=== PATIENT | male | born 1930 | race Caucasian/White ===

== ENCOUNTER 2019-03-04 06:34 | Inpatient (IN) ==
--- NOTE | 2019-03-04 07:01 | PROVIDER DOCUMENTATION ---
HPI-Cardiac General - General Chief Complaint: Shortness of Breath Stated Complaint: HEART PT---SOB Time Seen by Provider: 03/04/19 06:54 Allergies/Adverse Reactions: Patient Allergies Allergy/AdvReac Type Severity Reaction Status Date / Time Penicillins Allergy Intermediate HIVES Verified 11/26/18 13:04 Sulfa (Sulfonamide Allergy Mild HIVES Verified 11/26/18 13:04 Antibiotics) oxycodone AdvReac Mild ITCHING Verified 11/26/18 13:04 Home Medications: Home Medication List Medication Instructions Recorded Confirmed Last Taken Type Metoprolol [Lopressor] 1.5 tab PO BID 06/14/12 11/26/18 11/25/18 21:00 History Clonazepam 0.5 mg PO HS 11/11/13 11/25/18 11/25/18 21:00 History Multivitamins/Minerals [Centrum 1 tab PO DAILY 11/11/13 11/25/18 11/25/18 09:00 History Silver] Glimepiride 4 mg PO QAM 08/09/14 11/25/18 11/25/18 09:00 History Oxybutynin Chloride [Oxybutynin 10 mg PO DAILY 08/09/14 11/25/18 11/25/18 09:00 History Chloride ER] LISINOpril [Prinivil] 20 mg PO DAILY 07/14/17 03/04/19 11/25/18 09:00 History ATORVAstatin [Lipitor] 10 mg PO DAILY 07/06/18 11/25/18 11/25/18 09:00 History Acetaminophen/Diphenhydramine 0.5 tab PO HS 07/06/18 11/25/18 11/25/18 21:00 History [Tylenol Pm] Insulin Glargine,Hum.rec.anlog 25 - 30 unit SQ PRN PRN 07/06/18 11/26/18 11/26/18 06:00 History [Lantus Solostar] Iron 65 mg PO DAILY 07/06/18 11/25/18 11/25/18 09:00 History Nifedipine E.r. [Adalat cc] 30 mg PO DAILY 07/06/18 11/25/18 11/25/18 09:00 History Sodium Bicarbonate 650 mg PO BID 07/06/18 11/25/18 11/25/18 21:00 History Vitamin B Complex 1 each PO DAILY 07/06/18 11/25/18 11/25/18 09:00 History - History of Present Illness-Cardiac Nature of Presenting Problem: patient woke up 1am complain of sob. no chest pain. symptoms now improved. no fever. no cough. no LE pain or swelling Quality of Pain: reports: none Severity in ED: mild Onset/Duration: last night Timing: improving Context/Activities at Onset: reports: sleep Modifying Factors: improves with: nothing Associated Symptoms: reports: shortness of breath Review of Systems - Adult - REVIEW OF SYSTEMS - ADULT Constitutional: reports: no symptoms reported Cardiovascular: reports: see HPI Respiratory: reports: see HPI Gastrointestinal: reports: no symptoms reported Neurological: reports: no symptoms reported All Other Systems: Reviewed and Negative Past History - Adult - PAST MEDICAL HISTORY-ADULT Review of Records: reports: Nursing Assessment Review, Medications Reviewed, Social history reviewed & non-contributory. Major Childhood Illnesses: reports: denies history Cardiovascular: reports: HTN, hyperlipidemia Respiratory: reports: denies history Gastrointestinal: reports: GERD Obstetrical/Gynecological: reports: denies history Genitourinary: reports: other (renal disorder-bleeding bladder) Musculoskeletal: reports: denies history Neurological: reports: denies history Endocrine/Immune: reports: Diabetes Other Conditions: reports: denies history - PRIOR SURGERIES/PROCEDURES Surgical/Procedure History: reports: other (open heart surgery) - IMMUNIZATION STATUS Childhood Immunizations: See Nurse Assessment Flu Vaccine: See Nurse Assessment - FAMILY HISTORY Family History: reviewed, not pertinent - SOCIAL HISTORY Substance Use: denies Physical Exam-General - PHYSICAL EXAM-ADULT Initial Vital Signs Reviewed: Yes - CONSTITUTIONAL General Appearance: appears well, alert, no apparent distress - EYES Eyes: PERRL/EOMI, pink conjunctivae - HEAD, EARS, NOSE, MOUTH & THROAT HENMT: normocephalic/atraumatic, moist mucous membranes - NECK Neck: non-tender, full range of motion, supple - RESPIRATORY Respiratory: lungs clear, normal breath sounds, no respiratory distress - CARDIOVASCULAR Cardiovascular: normal peripheral pulses, regular rate, rhythm, no edema, no gallop, no JVD, no murmur - GASTROINTESTINAL (ABDOMEN) Abdominal Exam: normal bowel sounds, non tender, soft, no organomegaly, no pulsatile mass - MUSCULOSKELETAL Back Exam: normal inspection Extremity: no pedal edema, no calf tenderness - SKIN Integumentary: normal color, normal turgor, warm/dry - NEUROLOGIC Neurologic: no motor/sensory deficits Progress - PLAN OF CARE/RESULTS Progress/Plan/Lab Results: Vital Signs - 8 hr 03/04/19 06:40 Temperature 98.8 F Pulse Rate 87 Respiratory Rate 15 Blood Pressure 155/89 O2 Sat by Pulse Oximetry 99 Laboratory Results - last 24 hr 03/04/19 03/04/19 03/04/19 07:22 07:22 07:22 WBC 6.65 RBC 3.01 L Hgb 8.8 L Hct 28.6 L MCV 95.0 MCH 29.2 MCHC 30.8 L RDW Std Deviation 14.2 Plt Count 292 MPV 10.7 H Neut % (Auto) 62.7 Lymph % (Auto) 20.2 L [place] % (Auto) 11.4 H Eos % (Auto) 4.5 Baso % (Auto) 1.2 H Neut # (Auto) 4.17 Lymph # (Auto) 1.34 [place] # (Auto) 0.76 H Eos # (Auto) 0.30 Baso # (Auto) 0.08 PT INR PTT (Actin FS) Sodium 140 Potassium 4.4 Chloride 105 Carbon Dioxide 19 L Anion Gap 16 BUN 46 H Creatinine 6.1 H Estimated GFR/1.73 m2 9 BUN/Creatinine Ratio 8 Glucose 158 H Calculated Osmolality 295 Calcium 8.2 L Total Bilirubin 0.25 AST 20 ALT 12 Alkaline Phosphatase 59 Creatine Kinase 110 Troponin T Npi-L-Tpkocmmdjxi Pept > 89357 H Total Protein 7.5 Albumin 3.4 L Globulin 4.1 Albumin/Globulin Ratio 0.8 03/04/19 03/04/19 07:22 07:22 WBC RBC Hgb Hct MCV MCH MCHC RDW Std Deviation Plt Count MPV Neut % (Auto) Lymph % (Auto) [place] % (Auto) Eos % (Auto) Baso % (Auto) Neut # (Auto) Lymph # (Auto) [place] # (Auto) Eos # (Auto) Baso # (Auto) PT 15.8 INR 1.24 PTT (Actin FS) 39.4 Sodium Potassium Chloride Carbon Dioxide Anion Gap BUN Creatinine Estimated GFR/1.73 m2 BUN/Creatinine Ratio Glucose Calculated Osmolality Calcium Total Bilirubin AST ALT Alkaline Phosphatase Creatine Kinase Troponin T 0.747 H* Ett-H-Ykhzyumiyeb Pept Total Protein Albumin Globulin Albumin/Globulin Ratio Orders Category Date Time Status Cardiac Monitoring DIRECTED Care 03/04/19 06:57 Active Oxygen Therapy- ED Nursing DIRECTED Care 03/04/19 06:57 Active Saline Loc NOW Care 03/04/19 06:57 Active CHEST-1 VIEW [RAD] Stat Exams 03/04/19 06:57 Completed CBC WITH ELECTRONIC DIFF [HEME] Stat Lab 03/04/19 07:22 Completed CK PROFILE [SP CHEM] Stat Lab 03/04/19 07:22 Completed COMPREHENSIVE METABOLIC PANEL [CHEM] Stat Lab 03/04/19 07:22 Completed PRO B-NATRIURETIC PEPTIDE Stat Lab 03/04/19 07:22 Completed PROTIME WITH INR [COAG] Stat Lab 03/04/19 07:22 Completed PTT [COAG] Stat Lab 03/04/19 07:22 Completed TROPONIN T Stat Lab 03/04/19 07:22 Completed Aspirin Med 03/04/19 08:11 Discontinued 325 mg PO NOW ONE Furosemide [Lasix] Med 03/04/19 07:31 Discontinued 40 mg IV NOW ONE LISINOpril [Prinivil] Med 03/04/19 07:28 Discontinued 20 mg PO NOW ONE Nitroglycerin Med 03/04/19 08:11 Discontinued 1 inch TOP NOW ONE CP/SOB/Palp >45 yrs of Age Stat Oth 03/04/19 06:57 Ordered EKG [EKG] Stat Ther 03/04/19 06:52 Draft Echo Spec/Color Doppler Stat Ther 03/04/19 08:32 Ordered Result Diagrams: 03/04/19 07:22 03/04/19 07:22 - REASSESSMENT Reassessment #1 Time Reassessed: 08:43 Status: other (NO CHEST PAIN IN ER. SPEAKING IN FULL SENTENCES. DISCUSSED WITH DR BROOKE - WILL ADMIT AND CONSULT CARDIO, NEPHRO, ORDER ECHO) - EKG 1 Time of EKG reading by physician:: 06:50 EKG Read and Signed by:: Darrick Mccoy EKG Interpretation (*Must complete 3 of following elements*): Normal Rate: 69 Rhythm: paced [place]: normal ST Wave: non-specific ST changes Departure - Departure Date of Disposition Decision: 03/04/19 Time of Disposition Decision: 08:42 DIAGNOSIS: JUAN (acute kidney injury), CHF (congestive heart failure), NSTEMI (non-ST elevated myocardial infarction) Disposition: ADMITTED INPATIENT 09 Certified Medical Emergency: Emergent Condition: Fair Referrals and Follow-Ups: Virgil Brooke MD [Primary Care Provider] - - Critical Care Note This patient required my direct & personal management of CC.: Yes Total Time (mins): 45 Critical Care Statement: This patient required my direct personal management to treat or rule out processes, the absence of which, could potentiallly result in sudden, clinically significant life or limb threatening deterioration. Attestation - Physician/ MICHELET Attestation Patient care was provided by Advanced Practice Provider:: No The physician spent face to face time with patient:: Yes Advanced Practice Provider documentation review:: Supervising physician onsite and consulted in the evaluation and care of this patient. The physician did have a face to face encounter with the patient.
--- NOTE | 2019-03-04 07:16 | Diag Imaging Result Doc PS360 ---
EXAM: CHEST-1 VIEW 03/04/2019 HISTORY: SOB TECHNIQUE: AP portable at 0706 COMMENT: Compared to 05/23/2016 there is increased interstitial markings particularly in the right lower lobe. There is pleural thickening in the right apex. There is some questionable opacity in the mid right apex over the first rib anteriorly. IMPRESSION: Pulmonary edema plus minus pneumonia. Electronically signed by Armando Hinojosa 03/04/2019 7:14 AM
[2019-03-04] MEDS ORDERED: PRINIVIL PO ONE (07:28)
[2019-03-04] MEDS ORDERED: LASIX IV ONE ×2 (07:31→14:04)
[2019-03-04 07:40] LABS: BASO# 0.08 X1000 (0.0-0.2); BASO% 1.2 % (0.0-0.8); EOS% 4.5 % (0.0-10.0); HEMATOCRIT 28.6 % (42.0-52.0); HEMOGLOBIN 8.8 g/dL (14.0-18.0); LYMPH# 1.34 X1000 (1.2-3.4); LYMPH% 20.2 % (20.5-51.1); MCH 29.2 PG (27-31); MCHC 30.8 g/dL (33-37); MONO# 0.76 X1000 (0.11-0.59); MONO% 11.4 % (1.7-9.3); MPV 10.7 FL (7.4-10.4); NEUT# 4.17 X1000 (1.4-6.5); NEUT% 62.7 % (42.2-75.2); PLT 292 X1000 (130-400); RBC 3.01 XMIL (4.7-6.1); RDW 14.2 % (11.5-14.5); WBC 6.65 X1000 (4.8-10.8)
--- NOTE | 2019-03-04 07:40 | EKG Report ---
Test Performed on : 03/04/2019 06:46:38 AM Test Reason : SOB Blood Pressure : / mmHG Vent. Rate : 069 BPM Atrial Rate : 069 BPM P-R Int : 000 ms QRS Dur : 142 ms QT Int : 446 ms P-R-T Axes : 019 -67 021 degrees QTc Int : 477 ms Ventricular-paced rhythm Abnormal ECG When compared with ECG of 25-NOV-2018 13:07, Vent. rate has decreased BY 5 BPM Unconfirmed Result
[2019-03-04 07:52] LABS: INR 1.24; PROTIME 15.8 Seconds (11.0-16.0)
[2019-03-04 07:53] LABS: PTT 39.4 Seconds (22.3-41.8)
[2019-03-04 07:58] LABS: ALB/GLOB RATIO 0.8; ALBUMIN 3.4 g/dL (3.5-5.0); CALCIUM 8.2 mg/dL (8.8-10.2); POTASSIUM 4.4 mmol/L (3.5-5.1); TOTAL BILIRUBIN 0.25 mg/dL (0.20-1.00); TOTAL PROTEIN 7.5 g/dL (6.3-8.3)
[2019-03-04 07:59] LABS: CREATININE 6.1 mg/dL (0.7-1.2)
[2019-03-04] MEDS ORDERED: ASPIRIN PO ONE (08:11)
[2019-03-04] MEDS ORDERED: NITROGLYCERIN TOP ONE (08:11)
[2019-03-04] MEDS ORDERED: ZOFRAN IV PRN (08:44)
[2019-03-04] MEDS ORDERED: TYLENOL PO PRN (08:44)
[2019-03-04] MEDS ORDERED: AMBIEN PO PRN (08:44)
[2019-03-04] MEDS ORDERED: LOVENOX SUBQ ONE (10:40)
[2019-03-04] MEDS ORDERED: APRESOLINE IV PRN (11:13)
[2019-03-04] MEDS: CATAPRES PO PRN ×2 (11:35→17:27)
[2019-03-04] MEDS ORDERED: SODIUM CHLORIDE 0.9% INJ SCH (11:45)
--- NOTE | 2019-03-04 13:41 | ECHO REPORT ---
ORDER DATE: 03/04/2019 INTERPRETING PHYSICIAN: Dr. Colton Marrero. ECHOCARDIOGRAPHIC MEASUREMENTS: 1. Interventricular septum: 1.3 cm. 2. Left ventricular posterior wall: 1.2 cm. 3. Diastolic diameter: 4.7 cm. 4. Left atrium: 4.1 cm. 5. Aorta: 3.3 cm. SUMMARY OF THE 2-DIMENSIONAL IMAGIN. There is biatrial enlargement. 2. Tricuspid valve was normal. 3. Mitral valve was normal. There is mitral annular calcification. 4. Aortic valve leaflets were trileaflet. 5. Left ventricular cavity size was normal. There is mild left ventricular hypertrophy with severely reduced systolic function. Estimated ejection fraction of 20%. There is diastolic dysfunction. 6. There is no aortic stenosis. There is mild aortic regurgitation. 7. There is severe mitral regurgitation. 8. There is severe tricuspid regurgitation. Peak velocity across the tricuspid valve was 5.2 m/sec. 9. Pulmonary artery systolic pressure of 118 mmHg. There is severe pulmonary hypertension. 10. Right ventricle was mildly enlarged with reduced right ventricular systolic function. 11. There is no pericardial effusion. 12. Pacing leads were noted in the right chamber. cc: MD Virgil Mariee MD
[2019-03-04] MEDS: PROTONIX IV SCH (13:46)
[2019-03-04] MEDS ORDERED: ADALAT CC PO SCH (14:15)
--- NOTE | 2019-03-04 15:08 | HISTORY AND PHYSICAL ---
CHIEF COMPLAINT: Shortness of breath. 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 The patient was getting weaker. Last night, his shortness of breath was much more severe. He had a hard time breathing. The patient came to the emergency room. He had very elevated blood pressure. Chest x-ray revealed pulmonary edema. Blood work did reveal worsening renal function. The patient was given IV Lasix, evaluated by ER physician, admitted for further care. The patient claims to have diarrhea for 2 days. There was no blood or mucus in the stool. Oral intake was poor. The patient was not taking his medications for the last 2 to 3 days. No typical chest pain. Occasional palpitations. Mild cough. No expectoration. Denied any nausea or vomiting. The patient had suprapubic catheter which was functioning well. No heat or cold intolerance. Unquantified weight loss. Denied any joint swelling. Generalized weakness. No focal weakness. No abdominal distention. No major depression. No further history available at this time. ALLERGIES: Penicillin, sulfa, and oxycodone. PAST MEDICAL HISTORY: Significant for hypertension, chronic kidney disease, hyperlipidemia, hypothyroidism, coronary artery disease, obstructive uropathy, insomnia, chronic kidney disease. PAST SURGICAL HISTORY: CABG with stenting and defibrillator. Multiple urologic intervention for stone and bladder problem. PERSONAL HISTORY: Single. Nonsmoker. Denied alcohol or substance abuse. Fairly independent in activities of daily living. FAMILY HISTORY: Noncontributory. CURRENT MEDICATIONS: Noted. PHYSICAL EXAMINATION: GENERAL: Elderly, white gentleman in mild distress. VITAL SIGNS: In the emergency room, blood pressure 210/105, pulse 66, respirations 23, temperature 98.8 degrees. SKIN: Senile turgor. No rash or petechiae. HEENT: Head atraumatic, normocephalic. Hodgkins conjunctivae. Anicteric sclerae. Extraocular muscle movement normal. Fundus cannot be penetrated. Good oral hygiene. No tonsillopharyngeal congestion or exudate. Ears and nose benign. NECK: Supple. No JVD, thyromegaly, or lymphadenopathy. CHEST: Bibasilar crepitation. Bibasilar rales. Occasional wheezing. CARDIOVASCULAR: S1 and S2 heard. A 2/6 systolic murmur at the apex. No gallop or thrill. ABDOMEN: Soft, nontender. Bowel sounds present. The patient does have suprapubic catheter. EXTREMITIES: No cyanosis, clubbing. No acute DVT. CENTRAL NERVOUS SYSTEM: Alert, awake, able to move all 4 limbs. IMAGING AND LABORATORY DATA: Lab data revealed hemoglobin 8.8, hematocrit 28.6, WBC count 6.65, platelet count 292,000. PT/INR 1.24, PTT 39.4. BUN 46, creatinine 6.1. Troponin 0.717. Chest x- ray: Pulmonary edema. CONSIDERATION: The patient presented with shortness of breath. The patient did have bibasilar rales, deteriorating renal function. 1. Pulmonary edema. 2. Acute on chronic kidney disease stage 4 to 5. 3. Elevated troponin, most likely due to renal failure. 4. Uncontrolled hypertension. 5. Obstructive uropathy. 6. Hypothyroidism. 7. History of cardiac arrhythmia. 8. Anemia, most likely of chronic disease. PLAN: Admit the patient. Nephrology consult with Dr. Cruz. Cardiology consult. Manage hypertension. Fall precaution. Continue home medicine. Overall plan discussed at length with the patient, and he is in agreement. cc: Virgil Brooke MD
[2019-03-04] MEDS ORDERED: BLISTEX MEDICATED BERRY LIP BALM TOP PRN (17:19)
[2019-03-04] MEDS ORDERED: MILRINONE IV ONE (18:35)
[2019-03-04] MEDS ORDERED: LASIX IV SCH (20:00)
[2019-03-04] MEDS ORDERED: APRESOLINE PO SCH (21:00)
[2019-03-04] MEDS ORDERED: COREG PO SCH (21:00)
[2019-03-04] MEDS ORDERED: LOPRESSOR PO SCH (21:00)
[2019-03-04] MEDS: PRIMACOR 20 MG/D5W 100 ML 20 MG/100 ML IVPB IV SCH (21:31)
[2019-03-04] MEDS: KLONOPIN PO SCH (21:39)
[2019-03-04] MEDS: SODIUM BICARBONATE PO SCH (21:39)
--- NOTE | 2019-03-04 21:52 | CONSULTATION ---
DATE OF CONSULTATION: 03/04/2019 IMPRESSION: 1. Acute on chronic systolic heart failure in setting of severe ischemic cardiomyopathy and stage 4 chronic kidney disease. 2. Severe ischemic cardiomyopathy. 3. Severe pulmonary hypertension. 4. Severe mitral regurgitation and severe tricuspid regurgitation by echocardiography. 5. Atherosclerotic coronary disease with previous coronary bypass grafting in 1997 and angioplasty to vein graft to ramus intermedius in 2007. 6. Hypertension. 7. Hyperlipidemia. 8. Type 2 diabetes mellitus. 9. Prostate hypertrophy. 10. Hydroureteronephrosis bilaterally with bilateral ureteral stents as well as suprapubic catheter. RECOMMENDATIONS: 1. Add milrinone in effort to bolster cardiac performance to see if this might aid in diuresing him. 2. Ultimately patient to consider his decision whether or not to pursue dialysis given the progressive deterioration in his renal function. HISTORY: This 88-year-old white male with past history of atherosclerotic coronary disease, previous coronary bypass surgery in 1997, ischemic cardiomyopathy, chronic kidney disease stage 5, diabetes mellitus, hypertension, hyperlipidemia, and long-standing hypertension was admitted with progressive shortness of breath and weakness. He relates having exertional shortness of breath for the last week or so as well as a progressive decline in appetite over the past 3 or 4 weeks. Last night he started having orthopnea, and this prompted him to come in for evaluation. He manifests obvious signs of congestive heart failure. He has been given IV Lasix to initiate diuresis. He has diuresed a modest amount and is feeling better. There has been no chest pain. It is noteworthy that his creatinine raphael to just above 5 several months ago, and he has had nephrology consult with Dr. Sena. He has been putting off a decision regarding possible dialysis. He resides in assisted living. He has not been very active physically. He expresses reluctance to pursue dialysis at his age. PAST MEDICAL HISTORY: 1. Atherosclerotic coronary disease. 2. He is status post coronary bypass graft in 1997. 3. Status post angioplasty of saphenous vein graft to the ramus intermedius in 2007. 4. Ischemic cardiomyopathy. Previous left ventricular ejection fraction of 40%, but current echocardiography shows left ventricular ejection fraction of 20% with severe mitral regurgitation, severe tricuspid regurgitation, and severe pulmonary hypertension by Doppler. 5. Status post implantable defibrillator. 6. Hypertension. 7. Hyperlipidemia. 8. Type 2 diabetes mellitus. 9. Chronic kidney disease stage 5. 10. Hypothyroidism. 11. Prostate hypertrophy. 12. Hydroureteronephrosis bilaterally. Patient is status post bilateral ureteral stents as well as a suprapubic catheter. 13. Nephrolithiasis. 14. Gastroesophageal reflux disease. PAST SURGICAL HISTORY: Also includes cataract procedure and bilateral lens implants. ALLERGIES: He is allergic or intolerant to penicillin, sulfa and oxycodone. MEDICATIONS PRIOR TO ADMISSION: As listed. SOCIAL HISTORY: He is a . He resides in assisted living. He does not smoke or use alcohol. FAMILY HISTORY: Negative for premature coronary disease. REVIEW OF SYSTEMS: Pulmonary: Noteworthy for exertional dyspnea over the last several weeks and orthopnea in the last 24 hours. Gastrointestinal: Noteworthy for diminished appetite as well as some recent diarrhea. Constitutional review of systems: Noteworthy for modest weight loss in setting of poor appetite. Remainder of review of systems negative/noncontributory with 14 total systems reviewed. PHYSICAL EXAMINATION: General: Reveals a thin, elderly white male in no distress. Vital signs: Blood pressure 170/74, heart rate 79, oxygen saturation 97% on nasal cannula oxygen at 2 L/minute. HEENT: Extraocular movements appear intact. Mucous membranes moist. Neck: Supple. Jugular venous distention is demonstrated. Respiratory: Auscultation of the chest reveals a few crackles in the bases bilaterally. Cardiac Exam: Reveals a regular rate and rhythm. There is a grade 2 holosystolic murmur at the left ventricular apex. Gallop could not be appreciated. Abdomen: Soft. Bowel sounds are normal. Extremities: Demonstrate trace edema bilaterally. Neurologic: Exam reveals him to be alert and fully oriented. Speech is fluent. He moves all 4 extremities equally well. Skin: Warm and dry. Psychiatric: Reveals mood to be appropriate. DIAGNOSTIC DATA: Twelve-lead EKG demonstrates sinus rhythm with atrial sensed ventricular paced rhythm. LABORATORY DATA: Includes white blood cell count 6.65, hematocrit 28.6, hemoglobin 8.8, platelet count 292,000, protime 15.8, INR 1.24, PTT 39.4, sodium 140, potassium 4.4, chloride 105, carbon dioxide 19, BUN 46, creatinine 6.1, glucose 158, CPK 82, troponin T 0.706, albumin 3.4. cc: MD Virgil Roberto MD
[2019-03-05] MEDS ORDERED: NS 500 ML IV ONE (03:33)
[2019-03-05] MEDS: SYNTHROID PO SCH (06:08)
[2019-03-05] MEDS ORDERED: LASIX IV SCH (07:18)
--- NOTE | 2019-03-05 07:29 | PROGRESS NOTE ---
DATE: 03/05/2019 SUBJECTIVE: Mr. Ross admitted with shortness of breath, found to be in pulmonary edema, acute renal failure. The patient also had diarrhea at home. His blood pressure was very high. Deterioration of his chronic kidney disease. The patient is doing better. No high-grade fever or chills. Mild cough, no expectoration. No typical chest pain. The patient has suprapubic catheter which is draining well. His input and output chart noted. Urine output was 2175 mL. No diarrhea. OBJECTIVE: Vital Signs: Blood pressure low normal. Neck: Supple. No JVD. Lungs: Bilateral good air entry present. Rales in the lower lung field improved. Cardiovascular: S1 and S2 heard. A 2/6 systolic murmur at the apex. Abdomen: Soft, nontender. Bowel sounds present. Suprapubic catheter is in place. STATUE MAKER: Alert, awake, able to move all 4 limbs. LABS: The patient a.m. blood work is pending. ASSESSMENT AND PLAN: The patient medical problems include: 1. Acute on chronic congestive heart failure with pulmonary edema. 2. Chronic kidney disease. 3. Diabetes mellitus. 4. Hypothyroidism. 5. Cardiac arrhythmia. Appreciate Cardiology's help managing patient. The patient does have significant pulmonary hypertension, severe ischemic cardiomyopathy, obstructive uropathy, and suprapubic catheter. Patient's son was present. Overall plan and prognosis discussed. The patient is declining dialysis. We will continue current treatment. Close observation. As per patient's son, who is next of kin, requested DNR level 2. cc: Virgil Brooke MD
[2019-03-05 08:08] LABS: BASO# 0.07 X1000 (0.0-0.2); BASO% 1.2 % (0.0-0.8); EOS# 0.07 X1000 (0.0-0.7); EOS% 1.2 % (0.0-10.0); HEMATOCRIT 27.1 % (42.0-52.0); HEMOGLOBIN 8.3 g/dL (14.0-18.0); LYMPH# 0.88 X1000 (1.2-3.4); LYMPH% 14.9 % (20.5-51.1); MCH 28.3 PG (27-31); MCHC 30.6 g/dL (33-37); MCV 92.5 FL (81-99); MONO# 0.51 X1000 (0.11-0.59); MONO% 8.7 % (1.7-9.3); MPV 10.7 FL (7.4-10.4); NEUT# 4.36 X1000 (1.4-6.5); PLT 283 X1000 (130-400); RBC 2.93 XMIL (4.7-6.1); RDW 13.9 % (11.5-14.5); WBC 5.89 X1000 (4.8-10.8)
[2019-03-05 08:17] LABS: POTASSIUM 3.8 mmol/L (3.5-5.1)
[2019-03-05 08:18] LABS: ALB/GLOB RATIO 0.7; ALBUMIN 2.8 g/dL (3.5-5.0); CALCIUM 7.9 mg/dL (8.8-10.2); CREATININE 7.2 mg/dL (0.7-1.2); TOTAL BILIRUBIN 0.18 mg/dL (0.20-1.00); TOTAL PROTEIN 6.8 g/dL (6.3-8.3)
[2019-03-05 08:22] LABS: FREE T4 0.92 ng/dL (0.93-1.70); TSH 1.73 uIUmL (0.27-4.20)
[2019-03-05] MEDS: COLACE PO SCH (08:32)
[2019-03-05] MEDS: APRESOLINE PO SCH ×3 (08:32→20:40)
[2019-03-05] MEDS: ISORDIL PO SCH ×3 (08:32→18:02)
[2019-03-05] MEDS: ADALAT CC PO SCH (08:32)
[2019-03-05] MEDS: SODIUM BICARBONATE PO SCH ×2 (08:32→20:40)
[2019-03-05] MEDS: COREG PO SCH ×2 (08:32→20:40)
[2019-03-05] MEDS: FERROUS SULFATE PO SCH (08:33)
[2019-03-05] MEDS: PRIMACOR 20 MG/D5W 100 ML 20 MG/100 ML IVPB IV SCH ×2 (11:46→23:59)
[2019-03-05] MEDS: PROTONIX IV SCH (11:47)
--- NOTE | 2019-03-05 14:08 | NEPHROLOGY CONSULTATION ---
DATE: 03/05/2019 REASON FOR CONSULTATION: Chronic kidney disease stage 5. HISTORY OF PRESENT ILLNESS: Mr. Ross is an 88-year-old, white male with obstructive uropathy. He has stent exchange on a regular basis, most recently in November. He follows with Dr. Sena and they have been discussing renal replacement therapy. He has been ambivalent about pursuing this. He came to the hospital because of worsening weakness and difficulty with shortness of breath, especially with exertion. No chest pain. No cough or sputum. No abdominal pain. He does relate diarrhea. No chills or fevers. PAST MEDICAL HISTORY: As above. He also has hypertension, hyperlipidemia, hypothyroidism, coronary disease, insomnia. HOME MEDICATIONS: Include: Metoprolol, multivitamin, oxybutynin, glimepiride, lisinopril, Tylenol PM, sodium bicarbonate, nifedipine, atorvastatin, insulin, digoxin, Colace, levothyroxine, nifedipine. ALLERGIES: Penicillin, sulfa, oxycodone. SOCIAL HISTORY: He lives in [facility]. His son lives in assisted living facility in the [facility]. FAMILY HISTORY: Otherwise noncontributory. His mother lived to be 102. REVIEW OF SYSTEMS: Otherwise noncontributory. PHYSICAL EXAM: Blood pressure 136/56, heart rate 78, respirations 6 afebrile.Generally: Elderly man lying in bed at 20 degrees. No acute distress. Skin: Warm and dry, thin with multiple bruises. HEENT: Conjunctivae are pink. Pupils are equal. Corneal arcus is present. Oropharynx is clear. Poor dentition. Neck: Supple. Trachea is midline. Neck vein distention is present. Heart: PMI nondisplaced. Regular rate and rhythm with a gallop but no rubs. Lungs: Have equal excursion, equal breath sounds. No crackles or wheezes. Abdomen: Soft, nontender. Bowel sounds present. Extremities: Have no edema, clubbing or cyanosis. IMPRESSION: 1. Chronic kidney disease stage 5. We had another conversation about the role of renal replacement therapy in management of his uremic symptoms. We discussed a possible closed ended trial of hemodialysis to assess its effectiveness in helping him compensate for his symptoms. He has not had any absolute indications for dialysis today. He does have some evidence of volume overload but he has been treated with diuretics with a nice response. 2. Will follow along. cc: MD Virgil Hyde MD
--- NOTE | 2019-03-05 15:00 | PROGRESS NOTE ---
DATE: 03/05/2019 SUBJECTIVE: Patient denies shortness of breath or chest discomfort on supplemental oxygen per nasal cannula. OBJECTIVE: Vitals: Blood pressure 138/62. Heart rate 78, oxygen saturation 93 to 97% on supplemental oxygen per nasal cannula. Estimated jugular venous pressure approximately 10 to 12. Chest: Fairly clear to auscultation. Cardiac: Reveals a regular rate and rhythm with grade 2/6 systolic murmur at the left ventricular apex. Extremities: There is no evidence of peripheral edema. LABORATORY DATA: Includes white blood cell count of 5.9, hematocrit 27.1, hemoglobin 8.3. Sodium 137, potassium 3.8, chloride 104, carbon dioxide 18, BUN 51, creatinine 7.2. Initial troponin 0.706, followup troponin 0.708. Initial CPK 2, followup CPK 55. IMPRESSION: 1. Acute on chronic systolic heart failure in the setting of severe ischemic cardiomyopathy and stage 5 chronic kidney disease. 2. Nonspecific very mild elevation in troponin, probably related to renal failure and congestive heart failure. Doubt acute coronary syndrome. 3. Severe ischemic cardiomyopathy. 4. Severe pulmonary hypertension. 5. Severe mitral regurgitation and severe tricuspid regurgitation. 6. Atherosclerotic coronary disease with previous coronary bypass grafting in 1997 and angioplasty to saphenous vein graft to ramus intermedius in 2007. Patient continues without angina. 7. Hypertension. 8. Hyperlipidemia. 9. Type 2 diabetes mellitus. 10. Prostate hypertrophy. RECOMMENDATIONS: 1. Continue Coreg at current dose along with hydralazine/isosorbide. 2. Reduce IV Lasix to once daily. 3. Continue low-dose milrinone for now. cc: MD Virgil Roberto MD
[2019-03-05] MEDS: LASIX IV SCH (15:57)
[2019-03-05] MEDS: KLONOPIN PO SCH (20:39)
[2019-03-06] MEDS: SYNTHROID PO SCH (06:01)
[2019-03-06 07:50] LABS: ALB/GLOB RATIO 0.7; ALBUMIN 2.9 g/dL (3.5-5.0); CALCIUM 7.4 mg/dL (8.8-10.2); CREATININE 7.7 mg/dL (0.7-1.2); POTASSIUM 3.8 mmol/L (3.5-5.1); TOTAL BILIRUBIN 0.2 mg/dL (0.20-1.00); TOTAL PROTEIN 6.9 g/dL (6.3-8.3)
[2019-03-06 07:54] LABS: HEMOGLOBIN 7.5 g/dL (14.0-18.0); MCHC 31.3 g/dL (33-37); MCV 92.7 FL (81-99); MPV 10.9 FL (7.4-10.4); RBC 2.59 XMIL (4.7-6.1); RDW 13.9 % (11.5-14.5); WBC 8.1 X1000 (4.8-10.8)
[2019-03-06] MEDS: APRESOLINE PO SCH ×3 (10:36→23:33)
[2019-03-06] MEDS: ADALAT CC PO SCH (10:36)
[2019-03-06] MEDS: FERROUS SULFATE PO SCH (10:36)
[2019-03-06] MEDS: COLACE PO SCH (10:36)
[2019-03-06] MEDS: COREG PO SCH ×2 (10:36→20:59)
[2019-03-06] MEDS: ISORDIL PO SCH ×3 (10:37→20:59)
[2019-03-06] MEDS: LASIX IV SCH (10:37)
[2019-03-06] MEDS: SODIUM BICARBONATE PO SCH ×2 (10:37→20:59)
[2019-03-06] MEDS: PROTONIX IV SCH ×2 (10:40→10:55)
--- NOTE | 2019-03-06 12:09 | PROGRESS NOTE ---
DATE: 03/06/2019 SUBJECTIVE: An 88-year-old white male, admitted in the PVC unit since 03/04/2019. He came in with shortness of breath. Multiple medical problems. A Matthews was placed, drained [address] Cruz was consulted. He denies any shortness of breath, chest pain. PAST MEDICAL HISTORY: Reviewed. PAST SURGICAL HISTORY: Reviewed. MEDICINES: Reviewed. ALLERGIES: Penicillin, sulfa drugs. PHYSICAL EXAMINATION: Vital Signs: Temperature is 98 degrees, pulse 94, blood pressure 150/72. General: Mild respiratory distress and elevated JVD. Cardiovascular: Tachycardic with a gallop. Abdomen: Belly is soft. Genitourinary: SPC catheter was present. Extremities: No peripheral edema. LABORATORY DATA: White cell count 8.1, hematocrit 24, platelets 276,000. Sodium 138, potassium 3.8, chloride 103, BUN 55, creatinine 7.7, and LFTs were normal. Chest x-ray on 03/04/2019, cardiomegaly. He has a pacemaker noted on the left side. EKG, pacemaker rhythm. ASSESSMENT: 1. Acute on chronic systolic heart failure with severe ischemic cardiomyopathy. 2. End-stage kidney disease. 3. Nonspecific elevation of troponin. 4. Severe pulmonary hypertension. 5. Severe mitral regurgitation. 6. Coronary artery disease with bypass graft. 7. Hypertension. 8. Hyperlipidemia. 9. Type 2 diabetes. 10. Prostatic hypertrophy. 11. History of kidney stones. PLAN OF CARE: The patient is on IV Lasix and Milrinone. No significant improvement of urine output. Dr. Cruz was notified, and he is a DNR level 2 and control the blood pressure and afterload as given with hydralazine, isosorbide, nifedipine. Prognosis is poor. DNR level 2 and we will follow up. We will monitor blood workup on a daily basis. We will repeat the labs. LEVEL OF DOCUMENTATION: 35 minutes. cc: MD Virgil Lai MD
--- NOTE | 2019-03-06 15:02 | CARDIOLOGY PROGRESS NOTE ---
DATE: 03/06/2019 SUBJECTIVE: Mr. Ross has no complaints today. He is tolerating oral intake. He has no shortness of breath. PHYSICAL EXAMINATION: Vital Signs: Afebrile. Heart rate 94. His blood pressure is 150/72, but on review of his last several blood pressures he has had systolics as low as 97. General: He is in no acute distress. Cardiovascular: He sounds to be in a regular rate and rhythm. He has no murmurs. He has no S3. He has no lower extremity edema. Chest exam: Sounds relatively clear. He has no increased work of breathing. Abdomen: His abdomen is soft, nontender. PERTINENT DATA: His white count is 8.1, hematocrit 24, platelet count 276. His sodium is 138, potassium 3.8, BUN 55, creatinine 7.7. ASSESSMENT: Mr. Ross is an 88-year-old gentleman with a history of chronic kidney disease, now appearing to be in end-stage renal disease with tentative plans for placement of a dialysis access. PLAN: At this point, I would continue him on the Milrinone. His renal function is worsening. His diuresis does not seem to be particularly effective based on his inputs/outputs. I do not see any significant adjustments I can make in his medications at this point to better treat his heart failure. cc: MD Virgil Cruz MD
[2019-03-06] MEDS: PRIMACOR 20 MG/D5W 100 ML 20 MG/100 ML IVPB IV SCH (15:52)
[2019-03-06] MEDS: KLONOPIN PO SCH (20:59)
[2019-03-07] MEDS: SYNTHROID PO SCH ×2 (05:50→06:03)
[2019-03-07] MEDS: PRIMACOR 20 MG/D5W 100 ML 20 MG/100 ML IVPB IV SCH (05:50)
[2019-03-07 07:34] LABS: BASO# 0.04 X1000 (0.0-0.2); BASO% 0.6 % (0.0-0.8); EOS# 0.16 X1000 (0.0-0.7); EOS% 2.4 % (0.0-10.0); HEMATOCRIT 23.7 % (42.0-52.0); HEMOGLOBIN 7.3 g/dL (14.0-18.0); IMM GRAN# 0.02 X1000 (0.0-0.04); IMM GRAN% 0.3 % (0.0-0.5); LYMPH# 1.29 X1000 (1.2-3.4); LYMPH% 19.2 % (20.5-51.1); MCH 28.3 PG (27-31); MCHC 30.8 g/dL (33-37); MCV 91.9 FL (81-99); MONO# 1.04 X1000 (0.11-0.59); MONO% 15.5 % (1.7-9.3); MPV 10.6 FL (7.4-10.4); NEUT# 4.16 X1000 (1.4-6.5); PLT 285 X1000 (130-400); RBC 2.58 XMIL (4.7-6.1); RDW 13.8 % (11.5-14.5); WBC 6.71 X1000 (4.8-10.8)
[2019-03-07 07:57] LABS: AGAP 16; ALB/GLOB RATIO 0.7; ALBUMIN 2.7 g/dL (3.5-5.0); ALKALINE PHOSPHATASE 50 U/L (32-122); BUN 60 mg/dL (8-22); CALCIUM 7.8 mg/dL (8.8-10.2); CHLORIDE 105 mmol/L (98-107); COSMO 300; CREATININE 7.3 mg/dL (0.7-1.2); ESTIMATED GFR 7; GLUCOSE 173 mg/dL (70-104); GOT 16 U/L (10-34); GPT 8 U/L (10-44); SODIUM 140 mmol/L (136-145); TCO2 19 mmol/L (25-35); TOTAL BILIRUBIN < 0.15 mg/dL (0.20-1.00); TOTAL PROTEIN 6.5 g/dL (6.3-8.3)
[2019-03-07] MEDS: SODIUM BICARBONATE PO SCH ×2 (09:22→20:27)
[2019-03-07] MEDS: ADALAT CC PO SCH (09:23)
[2019-03-07] MEDS: ISORDIL PO SCH ×3 (09:23→21:43)
[2019-03-07] MEDS: COLACE PO SCH (09:23)
[2019-03-07] MEDS: COREG PO SCH ×2 (09:23→20:27)
[2019-03-07] MEDS: FERROUS SULFATE PO SCH (09:23)
[2019-03-07] MEDS: LASIX IV SCH (09:24)
[2019-03-07] MEDS: APRESOLINE PO SCH ×3 (09:24→20:27)
--- NOTE | 2019-03-07 10:48 | GENERAL SURGERY CONSULTATION ---
DATE: 03/07/2019 REQUESTING PHYSICIAN: Dr. Carranza. REASON FOR CONSULTATION: Placement of hemodialysis catheter. HISTORY OF PRESENT ILLNESS: An 88-year-old male with multiple medical comorbidities who presented initially with shortness of breath and felt dizzy related to congestive heart failure. They have tried to give him diuretics, and he has not seemed to improve. He does have chronic kidney disease and likely has acute on chronic. He had a recent echocardiogram that shows an EF of 20% and pulmonary hypertension. I was asked to place a dialysis catheter to try to help with the process of diuresis. PAST MEDICAL HISTORY: Hypertension, chronic kidney disease, hyperlipidemia, hypothyroidism, coronary artery disease, obstructive uropathy, insomnia. PAST SURGICAL HISTORY: Coronary artery bypass, defibrillator, multiple urologic surgeries. SOCIAL HISTORY: Nonsmoker. FAMILY HISTORY: Reviewed with patient, noncontributory. ALLERGIES: Penicillin, sulfa and oxycodone. CURRENT MEDICATIONS: Reviewed. REVIEW OF SYSTEMS: A full 14 systems reviewed and negative except as specified in HPI. PHYSICAL EXAMINATION: Vital Signs: The patient is currently afebrile. His vital signs are stable. General: No acute distress, male, looks stated age. HEENT: Normocephalic, atraumatic. Pupils equal, round, reactive to light. Mucous membranes moist. Oropharynx benign. Neck: Supple, trachea midline. Cardiovascular: Regular rate and rhythm. Lungs: Grossly clear. Abdomen: Soft, nontender, nondistended. Extremities: Moves all extremities. Neurologic: Grossly intact. Skin: No signs of jaundice. Vascular: All extremities perfused. LABORATORY DATA: From today, white blood cell count is normal, hematocrit is 23, platelet count 285,000. Creatinine 7.3, BUN is 65, potassium is normal. ASSESSMENT AND PLAN: An 88-year-old with acute on chronic kidney disease and congestive heart failure. 1. Acute on chronic kidney disease. At this time, he needs a more durable access for dialysis. We will plan on placement of a tunneled hemodialysis catheter tomorrow. The risks, benefits, and alternatives were discussed. Risks including, but not limited to bleeding, infection, risk of anesthesia, risk of pneumothorax discussed. We will likely need to do this under monitored anesthesia care and not general anesthetic given his medical comorbidities. 2. Multiple medical comorbidities currently being managed by his primary care physician. cc: MD Virgil Weiner MD
--- NOTE | 2019-03-07 13:05 | PROGRESS NOTE ---
DATE: 03/07/2019 SUBJECTIVE: The family was at bedside. He denies any chest pain or shortness of breath. His urine output was less than 200 mL. OBJECTIVE: General: He is a frail moises, not in respiratory distress. Neck: JVD is elevated. Heart: Heart sounds are regular and with a gallop. Abdomen: Belly is soft with SPC catheter noted. Extremities: No peripheral edema. INVESTIGATIONS: White cell count 6.1, hematocrit 23.7, platelets 285,000. Sodium 140, potassium 4.0, chloride 105, BUN 60, creatinine 7.3. LFTs were normal. ASSESSMENT AND PLAN: 1. End-stage kidney disease. No improvement with intravenous Lasix and Milrinone. I spoke to Dr. Cruz as well as Dr. Matias, who is on-call. Family agreed for dialysis, and Dr. Matias has been consulted for a tunnel catheter in preparing for dialysis. In the meantime, continue present treatment. 2. Living will. DO NOT RESUSCITATE 2. Prognosis is poor down the line. Continue present treatment. LEVEL OF DOCUMENTATION: 25 minutes. cc: MD Virgil Lai MD
--- NOTE | 2019-03-07 13:46 | CARDIOLOGY PROGRESS NOTE ---
DATE: 03/07/2019 SUBJECTIVE: Mr. Ross reports he is doing well. He has no orthopnea. He is lying flat. PHYSICAL EXAMINATION: The patient is afebrile. Heart rate 89, blood pressure 126/51. His I's and O's are slightly positive over the last 24 hours.General: He is in no acute distress. Cardiovascular: He sounds to be in a regular rate and rhythm. He has no murmurs. He has no lower extremity edema. He has warm and well perfused extremities. Chest: Clear bilaterally. He has no increased work of breathing. Abdomen: Soft, nontender. PERTINENT DATA: His albumin is 2.7, his BUN and creatinine are 60 and 7.3 which is roughly stable over the last couple of days. His white count is 6.7, hematocrit 23. ASSESSMENT: Mr. Ross is an 88-year-old gentleman who presents with heart failure and worsening end-stage renal disease. PLAN: I will stop his nifedipine and titrate up his hydralazine. We will discontinue his Milrinone over the course of the day. He is tentatively planned for his tunnel catheter in the morning. cc: MD Virgil Cruz MD
[2019-03-07] MEDS: PROTONIX IV SCH (15:16)
--- NOTE | 2019-03-07 18:35 | NEPHROLOGY PROGRESS NOTE ---
DATE: 03/07/2019 SUBJECTIVE: He has decided that he will pursue dialysis. He is awaiting tunnel catheter placement in the morning. No shortness of breath. OBJECTIVE: Vital Signs: Blood pressure 142/63, heart rate 85, respiration 18, afebrile. General: No acute distress. Skin: Warm and dry, thin, with bruising. HEENT: Conjunctivae are pink. Heart: PMI is displaced. Regular rhythm with a gallop. Lungs: Equal. No crackles. Abdomen: Soft, nontender. Bowel sounds present. Extremities: No edema, clubbing or cyanosis. IMPRESSION: Chronic kidney disease stage 5. He will initiate dialysis tomorrow. Two-hour treatment using a 3 potassium bath and minimal ultrafiltration. Daily treatment thereafter for total of 3 days. He plans to move to the [place] area, so we will defer to the [facility] to arrange outpatient dialysis. cc: MD Virgil Hyde MD
[2019-03-07] MEDS: KLONOPIN PO SCH (20:27)
[2019-03-08] MEDS: SYNTHROID PO SCH ×2 (05:22→06:02)
[2019-03-08] MEDS ORDERED: XYLOCAINE-MPF 2% ONE (07:19)
[2019-03-08] MEDS ORDERED: DIPRIVAN 1% ONE (07:19)
--- NOTE | 2019-03-08 07:19 | GENERAL SURGERY PROGRESS NOTE ---
DATE: 03/08/2019 SUBJECTIVE: The patient seems to be doing okay. OBJECTIVE: Vital Signs: The patient is currently afebrile. His vital signs are stable. General: No acute distress. HEENT: Normocephalic, atraumatic. Pupils equal, round, reactive to light. Mucous membranes moist. Oropharynx benign. Neck: Supple. Trachea midline. Cardiovascular: Regular rate and rhythm. Lungs: Grossly clear. Abdomen: Soft, nontender, nondistended. Extremities: Moves all extremities. Neurologic: Grossly intact. Skin: No signs of jaundice. Vascular: All extremities perfused. LABORATORY DATA: None. IMAGING: Chest x-ray from when he came in was reviewed. He does have a pacemaker from his left subclavian, it looks like, but should be out of the way of a right internal jugular vein tunneled catheter. ASSESSMENT AND PLAN: An 88-year-old gentleman needing hemodialysis catheter. Hemodialysis catheter. At this time, will plan on placement today. I discussed with him and documented yesterday, the risks, benefits, and alternatives. Will place again today. cc: MD Virgil Weiner MD
[2019-03-08] MEDS ORDERED: NS 250 ML ONE (07:56)
[2019-03-08] MEDS ORDERED: XYLOCAINE 1%/EPI 1:100,000 ONE (07:56)
[2019-03-08] MEDS ORDERED: KEFZOL 1 GM/D5W 1 GM/50 ML IVPB IV ONE (08:00)
[2019-03-08] MEDS ORDERED: TIGHT: 0.2 ML/HR FOR DIALYSIS MISC PRN (08:09)
[2019-03-08] MEDS ORDERED: NS 2,000 ML MISC PRN (08:09)
[2019-03-08] MEDS ORDERED: HEPARIN IV PRN (08:09)
[2019-03-08] MEDS ORDERED: ULTRAM PO ONE (08:48)
--- NOTE | 2019-03-08 09:11 | OPERATIVE NOTE ---
PROCEDURE DATE: 03/08/2019 PREOPERATIVE DIAGNOSES: 1. Acute on chronic kidney disease. 2. Need for hemodialysis. POSTOPERATIVE DIAGNOSES: 1. Acute on chronic kidney disease. 2. Need for hemodialysis. PROCEDURE PERFORMED: Ultrasound of fluoroscopic-guided right internal jugular vein tunneled hemodialysis catheter placement. SURGEON: Louis Matias M.D. ELECTRICAL REPAIRER: None. ANESTHESIA: IV MAC. FINDINGS: Ultrasound showed good-caliber right internal jugular vein. Fluoroscopy showed the catheter in good position. COMPLICATIONS: None at the time of this dictation. ESTIMATED BLOOD LOSS: 3 mL. SPECIMENS REMOVED: None. BRIEF HISTORY: An 88-year-old gentleman with congestive heart failure and acute on chronic kidney disease, who needed to have dialysis for some fluid management. The risks, benefits, and alternatives for placement were discussed and documented in the chart. All questions answered. DESCRIPTION OF PROCEDURE: After informed consent was obtained, the patient was brought to the operative theatre, transferred to the operating table, and placed in the supine position. IV MAC anesthesia was then performed without complication. A formal time-out was then performed, confirming the patient, date, and procedure. All were in agreement. At that time, we prepped and draped the right neck in a sterile fashion after the formal time-out. We used ultrasound to identify the right internal jugular vein under local anesthetic, and was able to cannulate the right internal jugular vein, passed a wire, seen under fluoroscopy going to the superior vena cava. We then created a pocket on the right chest wall, tunneled the catheter through this pocket, exchanged it over the wire in a typical Seldinger technique to place the tip of the catheter in the superior vena cava. All ports aspirated and flushed easily. We secured it in place. Again, fluoroscopy showed the catheter in good position, no pneumothorax, but chest x-ray is pending. The patient tolerated the procedure well, and was transferred back to the recovery room. cc: MD Virgil Weiner MD
--- NOTE | 2019-03-08 10:51 | Diag Imaging Result Doc PS360 ---
EXAM: CHEST-PORTABLE INDICATION: HD catheter placement TECHNIQUE: One view COMPARISON: 03/04/2019 FINDINGS: The newly placed central dialysis catheter is identified. The tip projects over the region of the right atrial caval junction in the expected position. The pulmonary edema appears to have improved at least slightly during the interval. There is no evidence of pneumothorax. No new consolidation is identified. Cardiac silhouette is stable. IMPRESSION: 1.Interval placement of central dialysis catheter on the right as described with no evidence of pneumothorax. 2.Likely slight improvement of interstitial edema. Electronically signed by Bj Szymanski 03/08/2019 10:49 AM
[2019-03-08] MEDS: APRESOLINE PO SCH ×3 (11:52→21:38)
[2019-03-08] MEDS ORDERED: NS 500 ML IV ONE (12:18)
[2019-03-08] MEDS: FERROUS SULFATE PO SCH (13:07)
[2019-03-08] MEDS: COLACE PO SCH (13:07)
[2019-03-08] MEDS: SODIUM BICARBONATE PO SCH ×2 (13:07→21:39)
[2019-03-08] MEDS: COREG PO SCH ×2 (13:07→21:38)
[2019-03-08] MEDS: LASIX IV SCH (13:18)
[2019-03-08] MEDS: ISORDIL PO SCH ×3 (13:19→17:25)
[2019-03-08] MEDS: PROTONIX IV SCH (13:19)
--- NOTE | 2019-03-08 13:19 | NEPHROLOGY PROGRESS NOTE ---
DATE: 03/08/2019 SUBJECTIVE: He is currently on dialysis. He had a right IJ tunnel catheter placed this morning by Dr. Matias. No new complaints. OBJECTIVE: Vital Signs: Blood pressure 144/69, heart rate 84, respirations 24, afebrile. General: No acute distress. Skin: Warm and dry. Neck: The neck veins are not appreciated. Heart: Regular. Lungs: Equal. Abdomen: Soft. Extremities: No edema. IMPRESSION: 1. Chronic kidney disease stage 5. Initiating dialysis today. He will have dialysis for 2 hours today and consecutively each day over the next 2 days. 2. Anemia. Hemoglobin is 7.3 this morning. We will continue to monitor carefully. Transfuse if required. cc: MD Virgil Hyde MD
--- NOTE | 2019-03-08 21:13 | PROGRESS NOTE ---
DATE: 03/08/2019 SUBJECTIVE: Mr. Ross is doing fairly well. The patient did receive his 1st dialysis today. The patient had dialysis catheter placed this morning. When I went to see patient, he was in the OR for dialysis catheter placement. The patient tolerated the procedure well without any complications. He denied any fever or chills. No unusual cough or expectoration. No nausea or vomiting. Oral intake is fair. No major hypoglycemic episode. OBJECTIVE: Vital Signs: His vital signs noted. Blood pressure 129/58, pulse 80, respirations 16, temperature 98 degrees. Skin: Senile turgor. Neck: Supple. No JVD. Lungs: Bibasilar crepitations. Heart: S1 and S2 heard. A 2/6 systolic murmur at the apex. Abdomen: Soft, nontender. Bowel sounds present. Extremities: No cyanosis, clubbing. No acute DVT. WELL DIGGER: Alert, awake. Able to mow all 4 limbs. CONSIDERATION: 1. End-stage renal disease. The patient had dialysis catheter placed and started 1st hemodialysis today. 2. Diabetes mellitus. 3. Hypertension. Blood pressure doing better. 4. Anemia, most likely of chronic disease. The patient has suprapubic catheter. LABORATORIES: His last hemoglobin was 7.3, hematocrit 23.7. Blood sugar results reviewed. I am going to check appropriate labs. PLAN: Overall plan discussed with the patient. Postprocedural chest x-ray noted there was no pneumothorax. Slight improvement of interstitial edema. cc: Virgil Brooke MD
[2019-03-08] MEDS: KLONOPIN PO SCH (21:38)
[2019-03-09] MEDS ORDERED: HEPARIN IV PRN (06:19)
[2019-03-09] MEDS ORDERED: TIGHT: 0.2 ML/HR FOR DIALYSIS MISC PRN (06:19)
[2019-03-09] MEDS ORDERED: NS 2,000 ML MISC PRN (06:19)
--- NOTE | 2019-03-09 06:51 | PROGRESS NOTE ---
DATE: 03/09/2019 Mr. Ross is feeling better. No chest pain, unusual cough or expectoration. Denied any nausea or vomiting. The patient tolerated 1st dialysis well. The patient has suprapubic catheter. Oral intake improving. No unusual cough or expectoration. OBJECTIVE: His vital signs noted.Neck: Supple. No JVD. Lungs: Bibasilar crepitations. Heart: S1 and S2 heard. Abdomen: Soft, nontender. Bowel sounds present. Suprapubic catheter is in place. No acute DVT. REWORKER: Alert, awake, able to move all 4 limbs. IMAGING: Chest x-ray done yesterday reviewed. CONSIDERATION: 1. Chronic kidney disease. The patient started dialysis yesterday. 2. Diabetes mellitus on insulin. 3. Hypertension. 4. Hypothyroidism. 5. Hyperlipidemia. PLAN: Overall the patient is doing fair. Will continue current treatment. Close observation. cc: Virgil Brooke MD
[2019-03-09 07:47] LABS: HEMATOCRIT 26.5 % (42.0-52.0); HEMOGLOBIN 8.2 g/dL (14.0-18.0); MCH 28.6 PG (27-31); MCHC 30.9 g/dL (33-37); MCV 92.3 FL (81-99); MPV 10.5 FL (7.4-10.4); RBC 2.87 XMIL (4.7-6.1); RDW 14.1 % (11.5-14.5); WBC 6.64 X1000 (4.8-10.8)
[2019-03-09 07:52] LABS: ALBUMIN 2.7 g/dL (3.5-5.0); CREATININE 6.5 mg/dL (0.7-1.2); PHOSPHORUS 5.4 mg/dL (2.7-4.5); POTASSIUM 3.9 mmol/L (3.5-5.1)
[2019-03-09 11:26] LABS: HEPATITIS PROFILE ACUTE SEE COMMENTS
[2019-03-09] MEDS: SODIUM BICARBONATE PO SCH ×2 (13:31→20:28)
[2019-03-09] MEDS: ISORDIL PO SCH ×3 (13:32→17:11)
[2019-03-09] MEDS: COREG PO SCH ×2 (13:32→20:28)
[2019-03-09] MEDS: APRESOLINE PO SCH ×3 (13:32→20:28)
[2019-03-09] MEDS: LASIX IV SCH (13:32)
[2019-03-09] MEDS: SYNTHROID PO SCH (13:32)
[2019-03-09] MEDS: FERROUS SULFATE PO SCH (13:32)
[2019-03-09] MEDS: COLACE PO SCH (13:32)
--- NOTE | 2019-03-09 14:06 | NEPHROLOGY PROGRESS NOTE ---
DATE: 03/09/2019 TIME SEEN: 0640 SUBJECTIVE: Mr. Ross is resting quietly in bed. States that he is feeling just slightly better. Denies any nausea. No chest pain. OBJECTIVE: Vital Signs: Temperature 98.2 degrees, blood pressure 162/62, heart rate 80, respirations 16. He is on room air, last recorded saturation 96%. Intake and Output: He has had 565 in, 2233 out with dialysis yesterday. General: This is an 88-year-old white male resting quietly in bed. He appears chronically ill, in no acute distress. Skin: Warm and dry. HEENT: Normocephalic, atraumatic. Conjunctiva is pale pink. He has SHANIA. Mucous membranes are dry. Neck: Supple. Trachea midline. He does have positive JVD. Cardiovascular: Regular rate and rhythm. He has a slightly displaced PMI. Positive gallop present. Lungs: Clear to auscultation bilaterally. Equal excursion anterior. He remains on room air. Abdomen: Slightly distended, nontender. Positive bowel sounds. Genitourinary: Not inspected. The patient has void with dialysis assist. Extremities: Have no edema. No clubbing or cyanosis. Integumentary: Patient has a tunneled dialysis catheter to the left IJ. LABORATORY DATA: Sodium is 141, potassium 3.9, chloride 103 CO2 of 22, BUN 55, creatinine 6.5, glucose is 147, anion gap is 16, calcium 8, phosphorus 5.4, albumin 2.7. White count 6.64, hemoglobin 8.2, hematocrit 26.5 with a platelet count of 289,000. ASSESSMENT: 1. Chronic kidney disease, stage 5D. Patient has had dialysis initiated yesterday. He is due for dialysis again today. We will dialyze him for [address] him on a 2K bath. We will attempt to pull 1 to 2 L of ultrafiltration. We will plan to consult [facility]. Patient is to be moved to [place] to live near his son, who will assist with his outpatient dialysis. We have consulted [facility] to contact the Nephrology Dialysis Unit over there and to please give us the name of the fish warden who is accepting so we can call and give him report. 2. Electrolytes and acid-base balance and anemia. His anemia has improved. Electrolytes and acid-base balance to improve on dialysis. PLAN: We will plan for dialysis today and again tomorrow. We will allow patient to rest on and plan for dialysis again on Friday with attempts for patient to be discharged on dialysis to the [place] area. I would like to thank you for allowing us to follow with this patient. Dictated by NATASHA Dubon for Lion Cruz MD Face to face encounter, data reviewed, discussed with Serg Dubon on 03/09/19. I agree with the above assessment and plan of care. cc: NATASHA Dubon MD Bharat K. Vakharia, MD MTDD
[2019-03-09] MEDS: KLONOPIN PO SCH (20:28)
[2019-03-10] MEDS: PROTONIX PO SCH (06:09)
[2019-03-10] MEDS: SYNTHROID PO SCH (06:09)
[2019-03-10] MEDS ORDERED: NS 2,000 ML MISC PRN (06:12)
[2019-03-10] MEDS ORDERED: TIGHT: 0.2 ML/HR FOR DIALYSIS MISC PRN (06:12)
[2019-03-10] MEDS ORDERED: HEPARIN IV PRN (06:12)
--- NOTE | 2019-03-10 06:34 | PROGRESS NOTE ---
DATE: 03/10/2019 SUBJECTIVELY: Mr. Ross is feeling some better. Oral intake improving. Denied any nausea or vomiting. No fever or chills. Patient is tolerating dialysis well. OBJECTIVE: Vital signs: Noted. Neck: Supple. No JVD. Lungs: Bibasilar crepitation. Heart: S1 and S2 heard. A 2/6 systolic murmur at the apex. Abdomen: Soft, nontender. Bowel sounds present. Central nervous system: Alert, awake, able to move all 4 limbs. PROBLEM LIST: Includes: 1. Longstanding hypertension. Blood pressure seems to be doing better. 2. Diabetes mellitus on insulin. 3. Hyperlipidemia. 4. Hypothyroidism on Synthroid. 5. Chronic kidney disease stage 5. Patient is on dialysis. PLAN: Overall, patient seems to be improving slowly. Will discuss with Dr. Cruz about possible discharge. Overall plan discussed with the son who was present, and he is in agreement. cc: Virgil Brooke MD
[2019-03-10 07:05] LABS: HEMATOCRIT 29.8 % (42.0-52.0); HEMOGLOBIN 9.1 g/dL (14.0-18.0); MCH 29.2 PG (27-31); MCHC 30.5 g/dL (33-37); MCV 95.5 FL (81-99); MPV 10.2 FL (7.4-10.4); RBC 3.12 XMIL (4.7-6.1); RDW 14.3 % (11.5-14.5); WBC 6.18 X1000 (4.8-10.8)
[2019-03-10 07:32] LABS: ALBUMIN 3.1 g/dL (3.5-5.0); CALCIUM 8.1 mg/dL (8.8-10.2); CREATININE 3.6 mg/dL (0.7-1.2); PHOSPHORUS 4.5 mg/dL (2.7-4.5); POTASSIUM 4.6 mmol/L (3.5-5.1)
[2019-03-10] MEDS: ISORDIL PO SCH ×3 (08:31→17:30)
[2019-03-10] MEDS: FERROUS SULFATE PO SCH (08:31)
[2019-03-10] MEDS: COREG PO SCH ×2 (08:31→20:44)
[2019-03-10] MEDS: SODIUM BICARBONATE PO SCH (08:31)
[2019-03-10] MEDS: APRESOLINE PO SCH ×3 (08:31→20:44)
[2019-03-10] MEDS: COLACE PO SCH (08:31)
[2019-03-10] MEDS: LASIX IV SCH (08:31)
--- NOTE | 2019-03-10 11:19 | NEPHROLOGY PROGRESS NOTE ---
DATE: 03/10/2019 Date Seen: 03/10/2019/ Time Seen: 0640. SUBJECTIVE: Mr. Ross is resting quietly in bed. His son is at his bedside. He is to have dialysis this morning. Son informs us that he is to move into his home in [place] after discharge and that Hydraulic Strainer Operator is attempting to get a placement for dialysis in the [facility]. The patient denies chest pain, no increased work of breathing, feeling much better. OBJECTIVE: Vital Signs: Temperature 98 degrees, blood pressure 153/59, heart rate 69, respirations 17. He is on room air. Last recorded saturation 97%. 840 in 650 out to Matthews catheter. LABORATORY DATA: Sodium 141, potassium 4.6, chloride 100, CO2 28, BUN 32, creatinine is 3.6, glucose is 172 anion gap 13, calcium 8.1, phosphorus 4.5, albumin 3.1. White count 6.18, hemoglobin 9.1, hematocrit 29.8 with a platelet count of 277,000. PHYSICAL EXAMINATION: General: This is an 88-year-old white male who appears chronically ill, though no acute distress. Skin: Warm and dry. HEENT: Normocephalic, atraumatic. Conjunctiva is pale pink. He has SHANIA. Mucous membranes are dry. Neck: Supple. Trachea midline. No evidence of JVD. Cardiovascular: Regular rate and rhythm. He has a soft gallop. He does have a slight displaced PMI. Lungs: Clear to auscultation bilaterally. Equal excursion on room air. Abdomen: Soft, nontender. Positive bowel sounds. Genitourinary: Not inspected. Patient has Matthews catheter in place with ileostomy. Previous stents. Extremities: Have no edema. No clubbing or cyanosis. Neurological: Alert and oriented x3. ASSESSMENT AND PLAN: 1. Chronic kidney disease stage 5D. The patient has recently started dialysis. He is to continue outpatient hemodialysis in the [facility]. Hydraulic Strainer Operator is currently working on acceptance to a dialysis clinic in the [facility] area with request to please notify as who the excepting cargoman is. 2. Electrolytes, acid-base balance and anemia. These continue to be improved. 3. Fluid volume overload. This is stable. I would like to thank you for allowing us to follow with this patient. Dictated by NATASHA Dubon for Lion Cruz MD Face to face encounter, data reviewed, discussed with Serg Dubon on 03/10/19. I agree with the above assessment and plan of care. cc: NATASHA Dubon MD Bharat K. Vakharia, MD [facility]
[2019-03-10] MEDS: KLONOPIN PO SCH (20:43)
[2019-03-11] MEDS: SYNTHROID PO SCH (06:18)
[2019-03-11] MEDS: PROTONIX PO SCH (06:18)
[2019-03-11 07:42] LABS: HEMATOCRIT 28.9 % (42.0-52.0); HEMOGLOBIN 8.7 g/dL (14.0-18.0); MCH 28.9 PG (27-31); MCHC 30.1 g/dL (33-37); MPV 10.4 FL (7.4-10.4); RBC 3.01 XMIL (4.7-6.1); RDW 13.9 % (11.5-14.5); WBC 5.89 X1000 (4.8-10.8)
[2019-03-11 08:00] LABS: ALBUMIN 2.9 g/dL (3.5-5.0); CREATININE 3.4 mg/dL (0.7-1.2); PHOSPHORUS 3.5 mg/dL (2.7-4.5)
[2019-03-11] MEDS: COLACE PO SCH (08:29)
[2019-03-11] MEDS: LASIX IV SCH (08:30)
[2019-03-11] MEDS: APRESOLINE PO SCH ×2 (08:30→14:20)
[2019-03-11] MEDS: FERROUS SULFATE PO SCH (08:30)
[2019-03-11] MEDS: ISORDIL PO SCH ×2 (08:30→14:20)
[2019-03-11] MEDS: COREG PO SCH (08:30)
[2019-03-11 11:32] VITALS: BP 114/59
--- NOTE | 2019-03-11 20:08 | NEPHROLOGY PROGRESS NOTE ---
DATE: 03/11/2019 SUBJECTIVE: Mr. Ross is resting quietly in bed. His son is at his bedside. They are hoping for discharge today. OBJECTIVE: His most recent vital signs temperature 97.9 degrees, blood pressure 141/62, heart rate 86, respirations 20. He is on room air. Last recorded saturation 98%. The patient has had 240 in, 400 out to void. LABS: Sodium is 133, potassium 4, chloride 95, CO2 25, BUN 21, creatinine 3.4, glucose 167. His anion gap is 13, calcium 8, phosphorus 3.5, albumin 2.9. White count 5.89, hemoglobin 8.7, hematocrit 28.9, with a platelet count of 265,000. PHYSICAL EXAMINATION: General: This is an 88-year-old elderly male. He is resting quietly in bed. No acute distress. Skin: Warm and dry. HEENT: Normocephalic, atraumatic. Conjunctivae pale pink. He has SHANIA. Mucous membranes are dry. Neck: Supple. Trachea midline. No JVD. Cardiovascular: Regular rate and rhythm. Soft gallop present. Lungs: Clear to auscultation bilaterally. Equal excursion on room air. Abdomen: Soft, nontender. Positive bowel sounds. Genitourinary: Not inspected. Matthews remains with ileostomy in place. Extremities: Has no edema. No clubbing or cyanosis. Right dialysis tunnel catheter to the right IJ. Neurological: Alert and oriented x3. ASSESSMENT AND PLAN: 1. Chronic kidney disease stage 5. Patient has recently started on dialysis. He is to continue outpatient dialysis at the [facility] in [place]. We have discussed with his son that from our perspective he is able to be discharged and we will call him with his next appointment at this outpatient clinic in [place]. 2. Electrolytes, acid-base balance and fluid volume status. These are stable. I would like to thank you for allowing us to follow with this patient. Dictated by NATASHA Dubon for Lion Cruz MD Face to face encounter, data reviewed, discussed with Serg Dubon on 03/12/19. I agree with the above assessment and plan of care. cc: NATASHA Dubon MD Bharat K. Vakharia, MD MTDD
[2019-03-12 07:01] LABS: HEPATITIS B SURFACE ANTIGEN SEE COMMENTS
--- NOTE | 2019-03-12 19:45 | DISCHARGE SUMMARY ---
ADMISSION DATE: 03/04/2019 DISCHARGE DATE: 03/11/2019 FINAL DISCHARGE DIAGNOSES: 1. Pulmonary edema. 2. Acute on chronic kidney disease stage 4 to 5. 3. Elevated troponin, most likely due to renal failure. 4. Uncontrolled hypertension. 5. Obstructive uropathy. The patient has chronic suprapubic catheter. 6. Hypothyroidism. 7. History of cardiac arrhythmia and pacemaker. 8. Anemia, most likely of chronic disease. HISTORY OF PRESENT ILLNESS: Mr. Ross is an 88-year-old, white gentleman, admitted with shortness of breath. The patient was getting short of breath with minimal exertion. He was getting weaker. Patient came to the emergency room. His blood pressure was very much elevated. Chest x-ray revealed pulmonary edema. Blood work revealed worsening renal function. His proBNP was very much elevated. The patient did receive some IV Lasix. Admitted for further care. HOSPITAL COURSE: Patient was treated with IV Lasix. Nephrology and Cardiology consult obtained and their recommendations noted. We talked to the patient. Initially, he was declining dialysis, but then he agreed. Surgical consult obtained. Dr. Matias put dialysis catheter and we started dialyzing patient. His clinical condition improved. He started eating well. Renal function was improving. The patient is going to stay with his son in [place], and social worker delinquency prevention and Dr. Cruz are going to make arrangements for him to have dialysis over there. Clinically, patient is doing better. His blood pressure is improving. The patient was ambulating with assistance and I decided to discharge the patient home today. Dr. Cruz was in agreement. PHYSICAL EXAMINATION: Vital signs: Noted blood pressure 114/59, pulse 71, respirations 16, temperature 97.6 degrees. Skin: Senile turgor. Neck: Supple. No JVD. Lungs: Bibasilar crepitations. Heart: S1 and S2 heard. A 2/6 systolic murmur at the apex. Abdomen: Soft, scaphoid. Bowel sounds present. Patient has suprapubic catheter. Extremities: No cyanosis, clubbing. No acute DVT. Central nervous system: Alert, awake. Able to move all 4 limbs. LABORATORY AND DIAGNOSTIC DATA: Revealed hemoglobin 8.7, hematocrit 28.9, WBC count 5.89, platelet count 265,000. His electrolytes, BUN was 21, creatinine 3.4 which did improve, potassium was 4. Blood sugar results reviewed. 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 The patient had a hepatitis profile done and it was negative. LFT results reviewed. Chest x-ray done last revealed slight improvement of interstitial edema. DISPOSITION/INSTRUCTIONS: Overall, patient received maximum benefit of hospitalization. We will discharge him home. Fall precautions. Monitor blood pressure and Accu-Chek at home. Dialysis as per Dr. Cruz. Take medicine regularly. Follow up with me in a week's time. In case of more distress, call us back or go to emergency room. cc: Virgil Brooke MD
== END 2019-03-11 15:15 | disposition home health service (06) | DRG 291 ==
LOC: ED 06:34 → 2N 09:04
PROVIDERS: ADMIT Internal Medicine; ATTEND Internal Medicine

== ENCOUNTER 2019-07-28 21:12 | Inpatient (IN) ==
[2019-07-28] MEDS ORDERED: ZOFRAN IV ONE (23:01)
--- NOTE | 2019-07-28 23:07 | PROVIDER DOCUMENTATION ---
HPI-Abdominal Pain/GI Problem - General Chief Complaint: Nausea/Vomiting Stated Complaint: vomiting Time Seen by Provider: 07/28/19 22:19 Source: patient Allergies/Adverse Reactions: Patient Allergies Allergy/AdvReac Type Severity Reaction Status Date / Time Penicillins Allergy Intermediate HIVES Verified 07/29/19 05:12 Sulfa (Sulfonamide Allergy Mild HIVES Verified 07/29/19 05:12 Antibiotics) oxycodone AdvReac Mild ITCHING Verified 07/29/19 05:12 Home Medications: Home Medication List Medication Instructions Recorded Confirmed Last Taken Type Multivitamins/Minerals [Centrum 1 tab PO DAILY 11/11/13 05/12/19 11/25/18 09:00 History Silver] Oxybutynin Chloride [Oxybutynin 10 mg PO BID PRN 08/09/14 05/12/19 11/25/18 09:00 History Chloride ER] ATORVAstatin [Lipitor] 10 mg PO QHS 07/06/18 05/12/19 11/25/18 09:00 History Ferrous Sulfate 325 mg PO DAILY 03/04/19 05/12/19 Unknown History Levothyroxine [Synthroid] 100 mcg PO DAILY 03/04/19 05/12/19 Unknown History Digoxin 125 mcg PO DIRECTED #30 03/11/19 05/12/19 Unknown Rx Furosemide [Lasix] 80 mg PO DAILY #30 tab 03/11/19 05/12/19 Unknown Rx Hydralazine [Apresoline] 25 mg PO TID@0800,1400,2100 tab 03/11/19 05/12/19 Unknown Rx Acetaminophen/Diphenhydramine 1 mg PO QHS 05/12/19 05/12/19 Unknown History [Tylenol Pm] Clonazepam [Klonopin] 0.5 mg PO QHS 05/12/19 05/12/19 Unknown History Docusate Sodium 1 tab PO DAILY 05/12/19 05/12/19 Unknown History Insulin Glargine,Hum.rec.anlog 8 unit SQ PRN PRN 05/12/19 05/12/19 Unknown History [Lantus Solostar] Metoprolol Tartrate 1.5 tab PO BID 05/12/19 05/12/19 Unknown History Nifedipine [Nifedipine ER] 1 tab PO DAILY 05/12/19 05/12/19 Unknown History Sevelamer [Renagel] 1 tab PO TID 05/12/19 05/12/19 Unknown History - History of Present Illness-ABD Nature of Presenting Problems: Patient with h/o DM, CHF, ESRD, started dialysis M/W/F 3 to 4 months ago. reports N/V in dialysis today and was transpotred to the ED by ambulance. Had 3 episodes of vomiting without abd pain, constipation or PREETI sx Abdominal Pain Onset Location: reports: other (n/v) Pain Radiation: reports: no radiation Quality of Pain: reports: none Onset/Duration: reports: other (today) Timing: reports: still present Activities at Onset: reports: none Modifying Factors: improves with: nothing Associated Symptoms: reports: nausea, vomiting Last BM: unsure Review of Systems - Adult - REVIEW OF SYSTEMS - ADULT Constitutional: reports: no symptoms reported Eyes: reports: no symptoms reported Ears, Nose, Mouth & Throat: reports: no symptoms reported Cardiovascular: reports: no symptoms reported Respiratory: reports: no symptoms reported Gastrointestinal: reports: see HPI. denies: abdominal pain, diarrhea, difficulty swallowing, frequent heartburn, rectal bleeding Genitourinary: reports: no symptoms reported Musculoskeletal: reports: no symptoms reported Integumentary: reports: no symptoms reported Neurological: reports: no symptoms reported Psychiatric: reports: no symptoms reported Endocrine: reports: no symptoms reported Hematologic/Lymphatic: reports: no symptoms reported Allergic/Immunologic: reports: no symptoms reported All Other Systems: Reviewed and Negative Past History - Adult - PAST MEDICAL HISTORY-ADULT Review of Records: reports: Nursing Assessment Review, Medications Reviewed, Social history reviewed & non-contributory. Major Childhood Illnesses: reports: denies history Cardiovascular: reports: HTN, hyperlipidemia Respiratory: reports: denies history Gastrointestinal: reports: GERD Obstetrical/Gynecological: reports: denies history Genitourinary: reports: other (renal disorder-bleeding bladder) Musculoskeletal: reports: denies history Neurological: reports: denies history Endocrine/Immune: reports: Diabetes Other Conditions: reports: denies history - PRIOR SURGERIES/PROCEDURES Surgical/Procedure History: reports: other (open heart surgery) - IMMUNIZATION STATUS Childhood Immunizations: See Nurse Assessment Flu Vaccine: See Nurse Assessment - FAMILY HISTORY Family History: reviewed, not pertinent - SOCIAL HISTORY Smoking: denies Substance Use: none/never Alcohol Use Frequency: never Physical Exam-General - PHYSICAL EXAM-ADULT Initial Vital Signs Reviewed: Yes - CONSTITUTIONAL General Appearance: alert, no apparent distress - EYES Eyes: PERRL/EOMI - HEAD, EARS, NOSE, MOUTH & THROAT HENMT: normocephalic/atraumatic, moist mucous membranes - NECK Neck: non-tender, full range of motion, supple - RESPIRATORY Respiratory: lungs clear - CARDIOVASCULAR Cardiovascular: regular rate, rhythm - GASTROINTESTINAL (ABDOMEN) Abdominal Exam: non tender, soft - MUSCULOSKELETAL Back Exam: no CVA tenderness, no vertebral tenderness Extremity: non-tender, no pedal edema - SKIN Integumentary: normal color - NEUROLOGIC Neurologic: grossly normal - PSYCHIATRIC Psych/Mental Status: oriented x 3 Progress - PLAN OF CARE/RESULTS Progress/Plan/Lab Results: Vital Signs - 8 hr 07/28/19 21:47 Temperature 100.4 F H Pulse Rate 93 H Respiratory Rate 19 Blood Pressure 181/91 O2 Sat by Pulse Oximetry 95 Orders Category Date Time Status Saline Loc DIRECTED Care 07/28/19 23:00 Active NPO Diet 07/28/19 23:00 Active AMYLASE [CHEM] Stat Lab 07/28/19 23:00 Uncollected CBC WITH ELECTRONIC DIFF [HEME] Stat Lab 07/28/19 23:00 Uncollected CK PROFILE [SP CHEM] Stat Lab 07/28/19 23:00 Uncollected COMPREHENSIVE METABOLIC PANEL [CHEM] Stat Lab 07/28/19 23:00 Uncollected LIPASE [CHEM] Stat Lab 07/28/19 23:00 Uncollected TROPONIN T HIGH SENSITIVITY Stat Lab 07/28/19 23:00 Uncollected URINALYSIS W/POSS RFLX CULT [URINALYSIS] Stat Lab 07/28/19 23:00 Uncollected Ondansetron [Zofran] Med 07/28/19 23:01 Once 4 mg IV NOW ONE EKG [EKG] Stat Ther 07/28/19 23:00 Ordered Patient signed out to me pending labs and dispo. Patient came in with fever, ordered CT abd/pelvis which is showing lower lobe PNA. Will need admission as he is on dialysis and needs treatment for HCAP. Spoke to Dr Funk but it was cl ose to shift change and patient is a Dr Brooke patient. He asked if we could call him closer to around 7am since the patient would be transferred to his service by 7am anyways. We agreed. Spoke to Dr Brooke who accepted patient for admission. Asked for basic cover orders to be placed and he will see the patient in the ED. Stable for floor with telemtry. Result Diagrams: 07/28/19 21:40 07/28/19 21:40 - REASSESSMENT Reassessment #1 Time Reassessed: 00:12 Status: improving (no nausea and vomiting at this time. Temp is 99) - EKG 1 Time of EKG reading by physician:: 00:22 Rhythm: Pacemaker [place]: right QRS: other (pacemaker rhythm) - CT/MRI 1 CT Study: Abdomen (EXAM: CT ABDOMEN/PELVIS W/O CONTRAST HISTORY: fever, abd pain TECHNIQUE: CT abdomen and pelvis without oral or intravenous contrast COMPARISON: None. FINDINGS: There are lower lobe infiltrates, left greater than right. There are air bronchograms in the left lower lobe. 2 mm calcified stone within a moderately distended gallbladder. No adjacent inflammation. Possible tiny hepatic cyst. No other hepatic abnormality identified on this noncontrasted exam. There are scattered splenic granuloma. No inflammation about the pancreas. Normal adrenal glands. There are bilateral renal stones. Prominent cortical thinning to the left kidney. There are bilateral renal nodules which may simply be cysts. There are several tiny stones in the upper left ureter. Mild left hydronephrosis with moderate right hydronephrosis. There is a suprapubic catheter. Urinary bladder is not distended. There is stool throughout the colon. No bowel obstruction. Prominent stool in the rectum. The prostate is not enlarged. Severe atherosclerosis. No aortic aneurysm. IMPRESSION: 1.Lower lobe pneumonia 2.Cholelithiasis 3.Nephrolithiasis with left cortical thinning and bilateral hydronephrosis with small stones in the upper left ureter 4.Bilateral renal nodules which may simply be cysts 5.Severe atherosclerosis 6.Constipation and possible fecal impaction This exam was performed using automated exposure control, adjustment of mA or kV according to patient size, and/or use of iterative reconstruction technique. Electronically signed by Benedicto Coffey 07/29/2019 5:19 AM) - CONSULTS/PCP/HOSPITALIST Notification #1 *Consult/PCP/Hospitalist*: Dr Brooke Time Discussed: 06:20 Consult Disposition: Admit (Wants basic orders placed and will see in the spital) #2 Consult: Dr Funk Time Discussed: 05:30 Consult Disposition: other (Asked if we could wait to page Dr Brooke when he comes on around 7am.) - CHANGE OF SHIFT REPORT (ED Provider) 1 Report Given and Care Transferred to:: Dr. Graham at the end of shift Time of Transfer: 00:49 Items Pending: Labs Departure - Departure Date of Disposition Decision: 07/29/19 Time of Disposition Decision: 06:20 DIAGNOSIS: Fever, Pneumonia, ESRD (end stage renal disease) on dialysis, Constipation Nausea & vomiting Qualifiers: Vomiting Intractability: non-intractable Disposition: HOME 01 Certified Medical Emergency: Emergent Condition: Stable Referrals and Follow-Ups: Virgil Brooke MD [Primary Care Provider] - - Critical Care Note This patient required my direct & personal management of CC.: No Attestation - Physician/ MICHELET Attestation Patient care was provided by Advanced Practice Provider:: No The physician spent face to face time with patient:: Yes Advanced Practice Provider documentation review:: Supervising physician onsite and consulted in the evaluation and care of this patient. The physician did have a face to face encounter with the patient.
[2019-07-28 23:19] LABS: BASO# 0.07 X1000 (0.0-0.2); BASO% 0.5 % (0.0-0.8); EOS# 0.01 X1000 (0.0-0.7); EOS% 0.1 % (0.0-10.0); HEMATOCRIT 39.9 % (42.0-52.0); IMM GRAN# 0.02 X1000 (0.0-0.04); IMM GRAN% 0.2 % (0.0-0.5); LYMPH# 0.69 X1000 (1.2-3.4); LYMPH% 5.2 % (20.5-51.1); MCH 27.8 PG (27-31); MCHC 30.1 g/dL (33-37); MCV 92.4 FL (81-99); MONO# 0.74 X1000 (0.11-0.59); MONO% 5.6 % (1.7-9.3); MPV 11.7 FL (7.4-10.4); NEUT# 11.65 X1000 (1.4-6.5); NEUT% 88.4 % (42.2-75.2); PLT 161 X1000 (130-400); RBC 4.32 XMIL (4.7-6.1); RDW 16.2 % (11.5-14.5); WBC 13.18 X1000 (4.8-10.8)
[2019-07-28 23:43] LABS: CALCIUM 8.5 mg/dL (8.8-10.2); CREATININE 3.3 mg/dL (0.7-1.2); POTASSIUM 4.8 mmol/L (3.5-5.1); TOTAL BILIRUBIN 0.46 mg/dL (0.20-1.00); TOTAL PROTEIN 8.1 g/dL (6.3-8.3)
--- NOTE | 2019-07-29 01:36 | EKG Report ---
Test Performed on : 07/29/2019 00:16:42 AM Test Reason : nausea, vomiting Blood Pressure : / mmHG Vent. Rate : 085 BPM Atrial Rate : 085 BPM P-R Int : 186 ms QRS Dur : 136 ms QT Int : 420 ms P-R-T Axes : 010 265 082 degrees QTc Int : 499 ms Atrial-sensed ventricular-paced rhythm Abnormal ECG When compared with ECG of 12-MAY-2019 17:55, Vent. rate has increased BY 12 BPM Unconfirmed Result
[2019-07-29 01:53] LABS: URINE SOURCE CATH
[2019-07-29 01:57] LABS: BILIRUBIN URINE NEGATIVE (NEGATIVE); BLOOD URINE MODERATE (NEGATIVE); COLOR YELLOW; GLUCOSE URINE 300 mg/dL (NEGATIVE); KETONE URINE TRACE mg/dL (NEGATIVE); LEUKOCYTES URINE LARGE (NEGATIVE); NITRITE URINE NEGATIVE (NEGATIVE); PH URINE 8.5; PROTEIN URINE 300 mg/dL (NEGATIVE); SP GRAVITY URINE 1.012; TURBIDITY URINE HAZY (CLEAR); UROBILINOGEN URINE NORMAL (NORMAL)
[2019-07-29 01:59] LABS: UR EPITHELIAL CELLS <10 /HPF (<10); URINE BACTERIA NEGATIVE /HPF; URINE RBC TNTC /HPF (<10); URINE WBC TNTC /HPF (<10)
[2019-07-29] MEDS ORDERED: ROCEPHIN 1 GM in NS 50 ML IV ONE (02:22)
[2019-07-29] MEDS ORDERED: TYLENOL PO ONE (02:23)
--- NOTE | 2019-07-29 05:21 | Diag Imaging Result Doc PS360 ---
EXAM: CT ABDOMEN/PELVIS W/O CONTRAST HISTORY: fever, abd pain TECHNIQUE: CT abdomen and pelvis without oral or intravenous contrast COMPARISON: None. FINDINGS: There are lower lobe infiltrates, left greater than right. There are air bronchograms in the left lower lobe. 2 mm calcified stone within a moderately distended gallbladder. No adjacent inflammation. Possible tiny hepatic cyst. No other hepatic abnormality identified on this noncontrasted exam. There are scattered splenic granuloma. No inflammation about the pancreas. Normal adrenal glands. There are bilateral renal stones. Prominent cortical thinning to the left kidney. There are bilateral renal nodules which may simply be cysts. There are several tiny stones in the upper left ureter. Mild left hydronephrosis with moderate right hydronephrosis. There is a suprapubic catheter. Urinary bladder is not distended. There is stool throughout the colon. No bowel obstruction. Prominent stool in the rectum. The prostate is not enlarged. Severe atherosclerosis. No aortic aneurysm. IMPRESSION: 1.Lower lobe pneumonia 2.Cholelithiasis 3.Nephrolithiasis with left cortical thinning and bilateral hydronephrosis with small stones in the upper left ureter 4.Bilateral renal nodules which may simply be cysts 5.Severe atherosclerosis 6.Constipation and possible fecal impaction This exam was performed using automated exposure control, adjustment of mA or kV according to patient size, and/or use of iterative reconstruction technique. Electronically signed by Benedicto Coffey 07/29/2019 5:19 AM
[2019-07-29] MEDS ORDERED: VANCOMYCIN 1 GM/NS 1 GM/250 ML IVPB IV ONE ×2 (05:27→18:00)
[2019-07-29] MEDS ORDERED: ZOSYN 3.375 GM in NS 50 ML IV ONE (05:27)
[2019-07-29] MEDS ORDERED: ZOFRAN IV PRN (10:00)
[2019-07-29] MEDS ORDERED: SODIUM CHLORIDE 0.9% INJ ONE (10:00)
[2019-07-29] MEDS ORDERED: DITROPAN XL PO PRN (10:00)
[2019-07-29] MEDS: APRESOLINE PO SCH ×3 (10:46→21:43)
[2019-07-29] MEDS: LOVENOX SUBQ SCH (10:46)
[2019-07-29] MEDS: MIRALAX PO SCH (10:46)
[2019-07-29] MEDS: COLACE PO SCH ×3 (10:46→21:44)
[2019-07-29] MEDS: DUONEB (A & A) INH SCH ×3 (11:25→21:54)
[2019-07-29] MEDS ORDERED: ZOSYN 3.375 GM in NS 50 ML IV SCH (11:30)
[2019-07-29] MEDS: CENTRUM SILVER PO SCH (11:44)
[2019-07-29] MEDS: RENAGEL PO SCH ×3 (11:44→18:50)
[2019-07-29] MEDS: ADALAT CC PO SCH (11:47)
[2019-07-29] MEDS: LOPRESSOR PO SCH ×2 (11:48→21:43)
[2019-07-29] MEDS: SYNTHROID PO SCH (11:49)
[2019-07-29] MEDS: FERROUS SULFATE PO SCH (11:50)
[2019-07-29] MEDS: LASIX PO SCH (11:50)
[2019-07-29] MEDS: PROTONIX IV SCH (11:54)
[2019-07-29] MEDS: HUMALOG SUBQ SCH ×2 (12:13→18:51)
[2019-07-29] MEDS ORDERED: VANCOMYCIN 1 GM/NS 1 GM/250 ML IVPB IV SCH (12:15)
--- NOTE | 2019-07-29 15:23 | PROVIDER PROGRESS NOTE ---
Progress Note Chief complaint: I was having chills that I could not get rid of after dialysis. HPI: Mr. Ross is an 88-year-old white male who is known to our service for the last 2 years with a history of noncompliance and chronic hydronephrosis. He started dialysis about 5 months ago in [place] and moved here shortly after. He has been receiving hemodialysis at the [facility] here in [place] for the last 3 months. He has voiced occasional episodes of nausea and vomiting since he started. Yesterday he was at his regularly scheduled treatment when he started vomiting profusely. On his way home he started having chills that he could not get rid of. He denies any associated shortness of breath, chest pain, lightheadedness, dizziness, hematuria, or cough. Upon arrival to the ED his CT of the abdomen and pelvis revealed lower lobe pneumonia, cholelithiasis, nephrolithiasis and bilateral hydronephrosis, bilateral renal nodules, severe atherosclerosis, and constipation. Past medical history: end stage renal disease, hypertension, hyperlipidemia, hypothyroidism, coronary artery disease, and insomnia. Past surgical history: coronary artery bypass, defibrillator, multiple urological surgeries. Social history: he lives at [facility] which is assisted living. He denies any current tobacco, alcohol, or illicit drug use. Family history: mother was positive for breast cancer and coronary artery disease Allergies: penicillin, sulfa, and oxycodone. Home medications: Tylenol p.m., atorvastatin, Klonopin, digoxin, docusate sod ium, ferrous sulfate, hydralazine, levothyroxine, metoprolol, multivitamin, oxybutynin chloride, sevelamer Review of systems: all pertinent positives listed above in the HPI. Physical exam: temperature 98.8, pulse 95, respirations 16, blood pressure 137/85, 02 sat 95% on room air. General:frail, elderly, white male lying in bed in no acute distress. HEENT: normocephalic, atraumatic, pupils equal and reactive. Conjunctiva pale. Mucous membranes dry. Skin: warm and dry Neck: supple, no JVD observed. Cardiovascular: paced. S1, S2, regular rate and rhythm. Respiratory: clear anteriorly with equal air entry. Abdomen: soft, nontender, nondistended. Bowel sounds active. : non-inspected, Suprapubic catheter in place Extremities: no clubbing, cyanosis, or edema. Neurological: alert, oriented to person, place, and time Labs: WBC 13.18, hemoglobin 12, hematocrit 39.9, platelet count 161, sodium 138, potassium 4.8, chloride 100, carbon dioxide 21, BUN 25, creatinine 3.3, troponin T 56, urine protein 300, urine glucose 300, urine ketones trace, urine blood moderate, leukocytes large, [id number], output 200. Imaging: CT abdomen and pelvis without contrast impression, cholelithiasis, nephrolithiasis with bilateral hydronephrosis, bilateral renal nodules, severe atherosclerosis, and constipation. Assessment and Plan: Chronic kidney disease stage 5D. He is scheduled MWF so we will plan on him continuing hemodialysis tomorrow. He identifies Nathen as his doctor. Blood pressure. In target. Fluid volume. Euvolemic. Anemia. In target. Electrolytes. Stable. Acid base balance. Anion gap acidosis. Will order lactic acid and acetone. Catheter sepsis rule out. He will need vancomycin after each dialysis treatment.
[2019-07-29] MEDS ORDERED: HEPARIN IV PRN (15:49)
[2019-07-29] MEDS ORDERED: NS 2,000 ML MISC PRN (15:49)
[2019-07-29] MEDS ORDERED: TIGHT: 0.2 ML/HR FOR DIALYSIS MISC PRN (15:49)
[2019-07-29] MEDS: ZOSYN 2.25 GM in NS 50 ML IV SCH (17:59)
[2019-07-29] MEDS: KLONOPIN PO SCH (21:44)
[2019-07-29] MEDS: LIPITOR PO SCH (21:44)
--- NOTE | 2019-07-29 22:53 | HISTORY AND PHYSICAL ---
CHIEF COMPLAINT: Fever and chills. HISTORY OF PRESENT ILLNESS: An 88-year-old, white gentleman, with multiple medical problems. The patient went for hemodialysis yesterday. While coming home, the patient had significant chills, started having nausea and vomiting. The patient claims he could not control his chills. The patient also had fever, had significant nausea and vomiting. Luncheonette Operator at the assisted living called the ambulance. The patient was brought to the emergency room. In the emergency room, workup did reveal left lower lobe pneumonia, cholelithiasis. The patient was symptomatic and the patient was admitted for further care. The patient had weight loss. The patient was feeling weak and tired. Oral intake is variable. He denied any typical chest pain. The patient did have some cough with scanty sputum production. He denied any hematemesis or melena. No diarrhea, blood, or mucus in the stool. The patient has suprapubic catheter for obstructive uropathy which is chronic. No gross hematuria. Denied abdominal distention. No further history available at this time. The patient has chronic kidney disease, on hemodialysis 3 times a week. The patient also has diabetes mellitus. Fair compliance to diet and medication. No further history available at this time. ALLERGIES: Penicillin, sulfa, oxycodone. HOME MEDICATIONS: Include Lipitor, Klonopin, Lanoxin, Colace, ferrous sulfate, Lasix, hydralazine, Synthroid, metoprolol, multivitamin, nifedipine, oxybutynin, Renagel. PAST MEDICAL HISTORY: Patient has chronic kidney disease stage 5, suprapubic catheter, longstanding hypertension, hypothyroidism, history of congestive heart failure, iron-deficiency anemia, chronic constipation, hyperlipidemia, paroxysmal atrial fibrillation, history suggestive of congestive heart failure, obstructive uropathy, and suprapubic catheter. PERSONAL HISTORY: Single, nonsmoker. Denied alcohol or substance abuse. FAMILY HISTORY: Noncontributory. REVIEW OF SYSTEMS: As per HPI. The patient does have unquantified weight loss. No major headache, blurred vision. Denied any sore throat. No dysphagia or odynophagia. No major depression. The patient does have problem with insomnia. PHYSICAL EXAMINATION: GENERAL: Elderly white gentleman, lying in the bed in mild distress. VITAL SIGNS: Blood pressure 181/91, pulse 93, respiration 19, temperature 100.4 degrees. SKIN: Senile turgor. HEENT: Head atraumatic, normocephalic. [place] conjunctivae. Anicteric sclerae. Extraocular muscle movement normal. Fundus cannot be penetrated. Good oral hygiene. No tonsillopharyngeal congestion or exudate. Ears and nose benign. NECK: Supple. No JVD, thyromegaly, or lymphadenopathy. CHEST: Bibasilar crepitations. A few inspiratory crepitations, left base. CARDIOVASCULAR: S1 and S2 heard. No gallop or thrill. A 2/6 systolic murmur at the apex. ABDOMEN: Soft. No distention. Bowel sounds present. Patient does have suprapubic catheter in place. CENTRAL NERVOUS SYSTEM: Alert, awake. Answering questions fairly well. MUSCULOSKELETAL: The patient does have crepitation in both the knee joints. LABORATORY DATA: Revealed WBC count 13.18, hemoglobin 12, hematocrit 39.9, platelet count 161,000. Patient does have left shift. Electrolytes, BUN 25, creatinine 3.3. Troponin 56. Plasma lactate 2.4. Urinalysis, large leukocyte, het-[id number]-count WBCs and RBCs. The patient does have chronic suprapubic catheter. CONSIDERATION: Patient admitted with fever, chills, chest congestion, cough. CT scan did reveal left lower lobe pneumonia. His other problems include end-stage renal disease, on hemodialysis, hypertension, diabetes mellitus, chronic kidney disease, gastritis, hyperlipidemia, obstructive uropathy and suprapubic catheter, hypothyroidism on Synthroid. The patient does have gallstones. CT scan results reviewed and discussed with the patient. PLAN: Admit the patient. Intravenous antibiotics, pulmonary toilet. Monitor Accu-Chek. Continue home medicine. Overall plan discussed at length with the patient and he is in agreement. cc: Virgil Brooke MD
[2019-07-30] MEDS: HUMALOG SUBQ SCH ×5 (00:03→23:17)
[2019-07-30] MEDS: ZOSYN 2.25 GM in NS 50 ML IV SCH ×4 (00:15→22:33)
[2019-07-30] MEDS: DUONEB (A & A) INH SCH ×4 (02:59→19:23)
[2019-07-30 05:39] LABS: BASO# 0.07 X1000 (0.0-0.2); BASO% 0.5 % (0.0-0.8); EOS% 0.7 % (0.0-10.0); HEMATOCRIT 35.5 % (42.0-52.0); HEMOGLOBIN 10.7 g/dL (14.0-18.0); IMM GRAN# 0.03 X1000 (0.0-0.04); IMM GRAN% 0.2 % (0.0-0.5); LYMPH% 7.4 % (20.5-51.1); MCH 28.1 PG (27-31); MCHC 30.1 g/dL (33-37); MCV 93.2 FL (81-99); MONO% 8.2 % (1.7-9.3); MPV 11.8 FL (7.4-10.4); NEUT# 11.18 X1000 (1.4-6.5); PLT 169 X1000 (130-400); RBC 3.81 XMIL (4.7-6.1); RDW 16.7 % (11.5-14.5); WBC 13.48 X1000 (4.8-10.8)
[2019-07-30 06:15] LABS: ALB/GLOB RATIO 0.8; ALBUMIN 3.3 g/dL (3.5-5.0); CALCIUM 8.9 mg/dL (8.8-10.2); CREATININE 4.4 mg/dL (0.7-1.2); POTASSIUM 5.1 mmol/L (3.5-5.1); TOTAL BILIRUBIN 0.3 mg/dL (0.20-1.00); TOTAL PROTEIN 7.5 g/dL (6.3-8.3)
[2019-07-30] MEDS: SYNTHROID PO SCH (08:50)
[2019-07-30] MEDS: CENTRUM SILVER PO SCH (08:50)
[2019-07-30] MEDS: APRESOLINE PO SCH ×3 (08:50→22:33)
[2019-07-30] MEDS: RENAGEL PO SCH ×3 (08:51→17:06)
[2019-07-30] MEDS: FERROUS SULFATE PO SCH (08:51)
[2019-07-30] MEDS: COLACE PO SCH ×3 (08:51→22:33)
[2019-07-30] MEDS: PROTONIX IV SCH (08:51)
[2019-07-30] MEDS: LASIX PO SCH (08:51)
[2019-07-30] MEDS: LANOXIN PO SCH (08:51)
--- NOTE | 2019-07-30 08:51 | PROGRESS NOTE ---
DATE: 07/30/2019 SUBJECTIVE: Mr. Ross is feeling some better. His nausea and vomiting are improving. He denied any chest pain. Cough is getting better. No high-grade fever or chills. Patient admitted with nausea, vomiting, and possible pneumonia. The patient does have history of hypertension, end- stage renal disease on hemodialysis, diabetes mellitus. OBJECTIVE: Vital Signs: Noted. Neck: Supple. No JVD. Lungs: Inspiratory crepitation at left base. Cardiovascular: S1 and S2 heard, a 2/6 systolic murmur at the apex. Abdomen: Soft, globular. Bowel sounds present. The patient does have suprapubic catheter. Central Nervous System: Alert, awake, able to move all 4 limbs. LABORATORY DATA: Done today, BUN 38, creatinine 4.4. WBC count 13.48, hemoglobin 10.7, hematocrit 35.5. PLAN: Continue IV antibiotics, hemodialysis, close observation, pulmonary toilet. cc: Virgil Brooke MD
[2019-07-30] MEDS: MIRALAX PO SCH (09:04)
[2019-07-30] MEDS: LOVENOX SUBQ SCH (11:24)
[2019-07-30] MEDS: ADALAT CC PO SCH (11:24)
[2019-07-30] MEDS: LOPRESSOR PO SCH ×2 (12:09→22:33)
[2019-07-30 14:21] LABS: HEPATITIS PROFILE ACUTE SEE COMMENTS
--- NOTE | 2019-07-30 20:17 | NEPHROLOGY PROGRESS NOTE ---
DATE: 07/30/2019 SUBJECTIVE: He is feeling better today. Lying in bed at the time of my exam, but he states he has been up and is not dizzy or weak. OBJECTIVE: Blood pressure 147/59, heart rate 90, respiration 18, afebrile.General: No acute distress. Skin: Warm and dry. Neck veins are not visible. Heart: Regular. No murmurs. Lungs: Equal. No crackles. Abdomen: Benign. Extremities: No edema, clubbing, or cyanosis. IMPRESSION/PLAN: Chronic kidney disease 5D. He underwent dialysis yesterday. Unfortunately, he became somewhat dizzy and he became hypotensive during treatment. Blood pressure is excellent now. He does not have a plan for treatment today. cc: MD Virgil Hyde MD
[2019-07-30] MEDS: LIPITOR PO SCH (22:33)
[2019-07-30] MEDS: KLONOPIN PO SCH (22:39)
[2019-07-31] MEDS: DUONEB (A & A) INH SCH ×5 (03:02→23:45)
[2019-07-31] MEDS: HUMALOG SUBQ SCH ×4 (06:29→20:15)
[2019-07-31] MEDS ORDERED: HEPARIN IV PRN (08:21)
[2019-07-31] MEDS ORDERED: NS 2,000 ML MISC PRN (08:21)
[2019-07-31] MEDS ORDERED: CATHFLO IV ONE ×2 (08:24)
[2019-07-31] MEDS ORDERED: STERILE WATER INJ. INJ ONE (08:24)
[2019-07-31] MEDS: LOVENOX SUBQ SCH (13:03)
[2019-07-31] MEDS: PROTONIX IV SCH (13:03)
[2019-07-31] MEDS: ZOSYN 2.25 GM in NS 50 ML IV SCH ×3 (13:03→22:32)
[2019-07-31] MEDS: MIRALAX PO SCH (13:03)
[2019-07-31] MEDS: FERROUS SULFATE PO SCH (13:04)
[2019-07-31] MEDS: COLACE PO SCH ×3 (13:04→20:16)
[2019-07-31] MEDS: LASIX PO SCH (13:04)
[2019-07-31] MEDS: RENAGEL PO SCH ×3 (13:04→16:54)
[2019-07-31] MEDS: ADALAT CC PO SCH (13:04)
[2019-07-31] MEDS: SYNTHROID PO SCH (13:04)
[2019-07-31] MEDS: CENTRUM SILVER PO SCH (13:05)
[2019-07-31] MEDS: APRESOLINE PO SCH ×3 (13:05→20:16)
[2019-07-31] MEDS: LOPRESSOR PO SCH ×2 (13:37→20:16)
--- NOTE | 2019-07-31 13:58 | PROGRESS NOTE ---
DATE: 07/31/2019 SUBJECT: 88-year-old white male patient of Dr. Brooke, admitted to the hospital with left lower lobe pneumonia and end-stage kidney disease on dialysis. The patient is seen in dialysis. The patient has dry cough, no fever, no complaints since yesterday. REVIEW OF SYSTEMS: None reported. PAST MEDICAL HISTORY: Reviewed. PAST SURGICAL HISTORY: Reviewed. MEDICINES: Reviewed. ALLERGIES: Penicillin and sulfa. OBJECTIVE: Temp is 98.6 degrees, pulse 82, blood pressure is 117/73.HEENT: Within normal limits. Neck: Supple. Chest: Bilateral air entry. Suboptimal exam. Heart: Sounds are regular. Belly is soft, scaphoid, and no signs of gangrene. No obvious deficits. INVESTIGATIONS: White cell count 13, hematocrit 35, platelet 169,000, SMA 7, sodium 139, potassium 5.1, chloride 101, BUN 38, creatinine 4.4, and glucose 137. LFTs were normal. Hepatitis panel is negative. Blood cultures are negative. Urine cultures are negative. Influenza was negative. ASSESSMENT AND PLAN: 1. Left lower lobe pneumonia, currently receiving IV vancomycin post dialysis and Zosyn. We will repeat the chest x-ray as well as CBC and SMA 7. 2. DVT prophylaxis with Lovenox, hypertension, hydralazine 25 t.i.d., Lasix 80 daily, metoprolol 75 p.o. b.i.d., nifedipine 30 mg daily. 3. Gastrointestinal prophylaxis with IV Protonix. 4. Constipation on MiraLAX. 5. Chronic kidney disease as per Dr. Cruz. 6. Hyperlipidemia on Lipitor. 7. History of cholelithiasis, asymptomatic. 8. History of kidney stones, stable. 9. CAD with history of congestive heart failure, currently stable, and follow up and continue present treatment. 10. Discussed the plan of care with the patient at bedside. LEVEL OF DOCUMENTATION: 25 minutes. cc: MD Virgil Lai MD
--- NOTE | 2019-07-31 19:42 | NEPHROLOGY PROGRESS NOTE ---
DATE: 07/31/2019 SUBJECTIVE: He is in dialysis currently. Lying flat. No shortness of breath, nausea, or vomiting. No complications with treatment. OBJECTIVE: Vital Signs: Blood pressure 180/76, heart rate 74, respirations 14, afebrile. General: Thin, chronically ill, no distress. Skin: Warm and dry. Neck: Veins are not visible. Trachea is midline. Heart: Regular with a murmur. Lungs: Equal. No crackles. Abdomen: Soft, nontender. Bowel sounds are present. Extremities: No edema, clubbing, or cyanosis. IMPRESSION/PLAN: Chronic kidney disease 5D. He is receiving his routine dialysis treatment today. Electrolytes/acid base/anemia/volume status all in target. Blood pressure has ranged from 134 systolic to 180. Observe. cc: MD Virgil Hyde MD
[2019-07-31] MEDS: LIPITOR PO SCH (20:16)
[2019-07-31] MEDS: KLONOPIN PO SCH (20:16)
[2019-08-01] MEDS: DUONEB (A & A) INH SCH ×4 (03:55→22:42)
[2019-08-01 04:53] LABS: BASO# 0.09 X1000 (0.0-0.2); BASO% 1.3 % (0.0-0.8); EOS# 0.43 X1000 (0.0-0.7); EOS% 6.2 % (0.0-10.0); HEMATOCRIT 37.1 % (42.0-52.0); HEMOGLOBIN 10.9 g/dL (14.0-18.0); IMM GRAN# 0.02 X1000 (0.0-0.04); IMM GRAN% 0.3 % (0.0-0.5); LYMPH# 1.65 X1000 (1.2-3.4); LYMPH% 23.7 % (20.5-51.1); MCH 27.4 PG (27-31); MCHC 29.4 g/dL (33-37); MCV 93.2 FL (81-99); MONO# 1.07 X1000 (0.11-0.59); MONO% 15.4 % (1.7-9.3); MPV 11.3 FL (7.4-10.4); NEUT# 3.69 X1000 (1.4-6.5); NEUT% 53.1 % (42.2-75.2); PLT 206 X1000 (130-400); RBC 3.98 XMIL (4.7-6.1); RDW 16.1 % (11.5-14.5); WBC 6.95 X1000 (4.8-10.8)
[2019-08-01 05:15] LABS: ALB/GLOB RATIO 0.7; CALCIUM 8.8 mg/dL (8.8-10.2); POTASSIUM 4.6 mmol/L (3.5-5.1); TOTAL BILIRUBIN 0.32 mg/dL (0.20-1.00); TOTAL PROTEIN 7.3 g/dL (6.3-8.3)
[2019-08-01] MEDS: HUMALOG SUBQ SCH ×4 (06:16→21:23)
[2019-08-01] MEDS: LASIX PO SCH (08:54)
[2019-08-01] MEDS: APRESOLINE PO SCH ×3 (08:54→21:23)
[2019-08-01] MEDS: ADALAT CC PO SCH (08:54)
[2019-08-01] MEDS: CENTRUM SILVER PO SCH (08:54)
[2019-08-01] MEDS: LOPRESSOR PO SCH ×2 (08:54→21:22)
[2019-08-01] MEDS: COLACE PO SCH ×3 (08:55→21:23)
[2019-08-01] MEDS: LANOXIN PO SCH (08:55)
[2019-08-01] MEDS: ZOSYN 2.25 GM in NS 50 ML IV SCH ×3 (08:56→23:53)
[2019-08-01] MEDS: MIRALAX PO SCH (08:56)
[2019-08-01] MEDS: RENAGEL PO SCH ×3 (08:56→17:50)
[2019-08-01] MEDS: SYNTHROID PO SCH (08:56)
[2019-08-01] MEDS: PROTONIX IV SCH (08:56)
[2019-08-01] MEDS: FERROUS SULFATE PO SCH (08:56)
[2019-08-01] MEDS: LOVENOX SUBQ SCH (09:00)
--- NOTE | 2019-08-01 09:14 | Diag Imaging Result Doc PS360 ---
CHEST-2 VIEWS - 08/01/2019 INDICATION: hypoxia COMPARISON: 05/12/2019 FINDINGS: Stable right-sided dialysis catheter. Stable left-sided biventricular pacemaker. Stable sternotomy wires. There is some infiltrate in the left lower lobe best seen on the lateral view. No pneumothorax or pleural effusion. Heart size is normal. IMPRESSION: Left lower lobe infiltrate suggesting pneumonia. Electronically signed by Akhil Novoa 08/01/2019 9:11 AM
--- NOTE | 2019-08-01 14:30 | PROGRESS NOTE ---
DATE: 08/01/2019 SUBJECTIVE: The patient had hemodialysis yesterday. He is doing very well. He is not offering any complaints. OBJECTIVE: Vital Signs: Temp is 98.2 degrees, pulse 83, blood pressure is 166/77, saturating 96% on room air. HEENT: Within normal limits. Chest: He had a dialysis catheter on the right side, pacemaker on the left side. No crackles. Heart: Distant heart sounds. Abdomen: Belly is soft, scaphoid. SPC catheter was placed. Extremities: No peripheral edema, cyanosis. Neurologic: No obvious neurological deficits. IMAGING AND LABORATORY DATA: White cell count 6.95, hematocrit 37, platelets 260,000. Sodium 140, potassium 4.6, chloride 101, BUN 34, creatinine 4.0, glucose 114. LFTs were normal. Hepatitis panel was negative. Blood cultures, urine cultures, flu was negative. Chest x-ray: Right-sided dialysis catheter, status post left-sided pacemaker, mild infiltrate in the left lower lobe barely seen because of the pacemaker. ASSESSMENT AND PLAN: 1. Left lower lobe pneumonia. Currently receiving intravenous Zosyn and vancomycin post dialysis. 2. End-stage kidney disease as per dialysis by Dr. Cruz. 3. Constipation, on MiraLAX. 4. Deep venous thrombosis prophylaxis with Lovenox. 5. Hyperlipidemia, on Lipitor. 6. History of cholelithiasis, asymptomatic. 7. History of kidney stones. SPC catheter. Stable. 8. Coronary artery disease. 9. History of congestive heart failure, stable. Continue present treatment for antibiotics. Hopefully, will be discharged. LEVEL OF DOCUMENTATION: 25 minutes. cc: MD Virgil Lai MD
[2019-08-01] MEDS: LIPITOR PO SCH (21:23)
[2019-08-01] MEDS: KLONOPIN PO SCH (21:24)
[2019-08-02] MEDS: DUONEB (A & A) INH SCH ×4 (03:35→19:24)
[2019-08-02] MEDS: HUMALOG SUBQ SCH ×4 (06:21→21:43)
--- NOTE | 2019-08-02 07:25 | PROGRESS NOTE ---
DATE: 08/02/2019 SUBJECTIVE: Mr. Ross is doing fair. The patient does have mild cough. No unusual expectoration. No fever or chills. Oral intake is fair. The patient is still weak and at times unsteady. His son claimed he was walking with him, and he almost fell twice. I think patient will be benefited from short-term rehab. OBJECTIVE: His vital signs as noted.Neck: Supple. No JVD. Lungs: Bibasilar crepitations. Heart: S1 and S2 heard. 2/6 systolic murmur at the apex. Abdomen: Soft and nontender. Bowel sounds present. Suprapubic catheter is in place. STUDENT CAREER DEVELOPMENT SPECIALIST: Alert, awake. Able to move all 4 limbs. LABORATORY DATA: Hemoglobin 10.9, hematocrit 37.1, and platelet count 206,000. WBC count 6.95. Electrolytes: BUN 34, creatinine 4, and potassium 4.6. Chest x-ray done yesterday revealed left lower lobe pneumonia. ASSESSMENT AND DISCUSSION: 1. The patient admitted with left lower lobe pneumonia on IV antibiotics. WBC count seems to be improving. 2. Uncontrolled hypertension. 3. Stage 5 chronic kidney disease. 4. Diabetes mellitus, osteoarthritis, and hyperlipidemia. I encouraged patient not to drive. Fall precautions. I did social service consult for short-term rehab. PLAN: Overall plan discussed with the patient. Also, discussed with him about not to drive. If we have longterm bed available, I will discharge patient today. cc: Virgil Brooke MD
[2019-08-02] MEDS: PROTONIX IV SCH (08:43)
[2019-08-02] MEDS: ZOSYN 2.25 GM in NS 50 ML IV SCH ×3 (08:43→23:29)
[2019-08-02] MEDS: LOPRESSOR PO SCH ×2 (08:48→21:37)
[2019-08-02] MEDS: RENAGEL PO SCH ×3 (08:49→17:20)
[2019-08-02] MEDS: COLACE PO SCH ×3 (08:50→21:37)
[2019-08-02] MEDS: LASIX PO SCH (08:50)
[2019-08-02] MEDS: FERROUS SULFATE PO SCH (08:51)
[2019-08-02] MEDS: MIRALAX PO SCH (08:51)
[2019-08-02] MEDS: APRESOLINE PO SCH ×3 (08:51→21:36)
[2019-08-02] MEDS: CENTRUM SILVER PO SCH (08:52)
[2019-08-02] MEDS: ADALAT CC PO SCH (08:52)
[2019-08-02] MEDS: SYNTHROID PO SCH (08:52)
[2019-08-02] MEDS: LOVENOX SUBQ SCH (11:45)
--- NOTE | 2019-08-02 14:40 | PROVIDER PROGRESS NOTE ---
Progress Note Subjective: he voices no uremic complaints. He does mention that at his time of discharge he would like to be transferred back to our care. I discussed with him that this would mean transferring to my dialysis clinics. He is OK with this. We will set this up for him. Objective: temperature 98.2, pulse 71, respirations 18, blood pressure 157/66, 02 sat 98% on room air. General:frail, elderly, white male lying in bed in no acute distress. HEENT: normocephalic, atraumatic, pupils equal and reactive. Conjunctiva pale. Mucous membranes moist. Skin: warm and dry Neck: supple, no JVD observed. Cardiovascular: paced. S1, S2, regular rate and rhythm. Respiratory: clear anteriorly with equal air entry. Abdomen: soft, nontender, nondistended. Bowel sounds active. : non-inspected, Suprapubic catheter in place Extremities: no clubbing, cyanosis, or edema. Neurological: alert, oriented to person, place, and time Labs: Intake zero, output 1050 Impression: Chronic kidney disease stage 5D. Last hemodialysis treatment was on Friday. Next HD tomorrow. Blood pressure. Stable. Fluid volume. Euvolemic. Anemia. Stable. Electrolytes. Stable. Acid base balance. Stable. Ambulation. PT in place. Attempting to place in SNF Medication review. No changes.
[2019-08-02] MEDS: KLONOPIN PO SCH (21:36)
[2019-08-02] MEDS: LIPITOR PO SCH (21:37)
[2019-08-03] MEDS: DUONEB (A & A) INH SCH ×4 (05:20→21:30)
[2019-08-03] MEDS ORDERED: HEPARIN IV PRN (06:17)
[2019-08-03] MEDS ORDERED: NS 2,000 ML MISC PRN (06:17)
[2019-08-03] MEDS ORDERED: TIGHT: 0.2 ML/HR FOR DIALYSIS MISC PRN (06:17)
[2019-08-03] MEDS: HUMALOG SUBQ SCH ×4 (06:33→21:22)
--- NOTE | 2019-08-03 07:01 | PROGRESS NOTE ---
DATE: 08/02/2019 SUBJECTIVE: Mr. Ross is feeling fair. He does have cough with scanty sputum production. No high-grade fever or chills. Oral intake variable. At times his blood pressure is staying high. No nausea or vomiting. Suprapubic catheter is functioning well. OBJECTIVE: Vital Signs: His vital signs are noted. Blood pressure is staying high. Neck: Supple. No JVD. Lungs: Bibasilar crepitations. Heart: S1 and S2 heard. A 2/6 systolic murmur at the apex. Abdomen: Soft, nontender. Bowel sounds present. STYLIST APPRENTICE: Alert, awake. Able to move all 4 limbs. IMPRESSION AND PLAN: The patient's problems includes: 1. Left lower lobe pneumonia clinically improving. 2. Uncontrolled hypertension. I increased his nicardipine to 60 mg. 3. Chronic kidney disease stage 5 on hemodialysis. 4. Diabetes mellitus. 5. Hypothyroidism. Labs and medication noted. Overall the patient is doing better. We will continue current treatment. Close observation. The patient is waiting for rehab placement. cc: Virgil Brooke MD
[2019-08-03 12:36] LABS: HEMATOCRIT 35.8 % (42.0-52.0); HEMOGLOBIN 10.6 g/dL (14.0-18.0); MCH 27.2 PG (27-31); MCHC 29.6 g/dL (33-37); MCV 91.8 FL (81-99); MPV 10.8 FL (7.4-10.4); RBC 3.9 XMIL (4.7-6.1); RDW 15.8 % (11.5-14.5); WBC 4.99 X1000 (4.8-10.8)
[2019-08-03 13:03] LABS: ALBUMIN 3.1 g/dL (3.5-5.0); CALCIUM 8.8 mg/dL (8.8-10.2); CREATININE 2.3 mg/dL (0.7-1.2); PHOSPHORUS 1.9 mg/dL (2.7-4.5); POTASSIUM 3.3 mmol/L (3.5-5.1)
--- NOTE | 2019-08-03 13:20 | PROVIDER PROGRESS NOTE ---
Progress Note Subjective: patient denies any uremic complaints. He was standing up in his bathroom shaving this morning with son at bedside. Objective: temperature 97.8, pulse 68, respirations 18, blood pressure 156/65, 02 sat 99% on room air. General:frail, elderly, white male standing up in no acute distress. HEENT: normocephalic, atraumatic, pupils equal and reactive. Conjunctiva pale. Mucous membranes moist. Skin: warm and dry Neck: supple, no JVD observed. Cardiovascular: paced. S1, S2, regular rate and rhythm. Respiratory: clear anteriorly with equal air entry. Abdomen: soft, nontender, nondistended. Bowel sounds active. : non-inspected, Suprapubic catheter in place Extremities: no clubbing, cyanosis, or edema. Neurological: alert, oriented to person, place, and time Labs: Intake 830, Output 600 Impression: Chronic kidney disease stage 5D. He will receive hemodialysis with a 2K bath and attempt last post dialysis weight ultrafiltration. Blood pressure. Stable. Fluid volume. Euvolemic. Anemia. Stable on last labs. Electrolytes. Stable on last labs. Acid base balance. Stable on last labs. Ambulation. PT in place. Attempting to place in SNF Medication review. No changes.
[2019-08-03] MEDS: RENAGEL PO SCH ×3 (13:24→18:46)
[2019-08-03] MEDS: MIRALAX PO SCH (13:24)
[2019-08-03] MEDS: APRESOLINE PO SCH ×3 (13:24→21:22)
[2019-08-03] MEDS: LOPRESSOR PO SCH ×2 (13:25→21:23)
[2019-08-03] MEDS: FERROUS SULFATE PO SCH (13:27)
[2019-08-03] MEDS: COLACE PO SCH ×2 (13:27→13:33)
[2019-08-03] MEDS: LANOXIN PO SCH (13:27)
[2019-08-03] MEDS: CENTRUM SILVER PO SCH (13:27)
[2019-08-03] MEDS: LASIX PO SCH (13:30)
[2019-08-03] MEDS: SYNTHROID PO SCH (13:31)
[2019-08-03] MEDS: PROTONIX IV SCH (13:31)
[2019-08-03] MEDS: LOVENOX SUBQ SCH (13:50)
[2019-08-03] MEDS: PROCARDIA ER PO SCH (14:16)
[2019-08-03] MEDS: ZOSYN 2.25 GM in NS 50 ML IV SCH ×3 (15:11→23:35)
[2019-08-03] MEDS ORDERED: VANCOMYCIN 1 GM/NS 1 GM/250 ML IVPB IV ONE (17:00)
[2019-08-03] MEDS: LIPITOR PO SCH (21:22)
[2019-08-03] MEDS: KLONOPIN PO SCH (21:22)
[2019-08-04] MEDS: DUONEB (A & A) INH SCH ×2 (03:20→10:16)
--- NOTE | 2019-08-04 07:21 | PROGRESS NOTE ---
DATE: 08/04/2019 SUBJECTIVE: Mr. Ross is feeling better. Mild cough. No significant expectoration. No nausea, vomiting. Oral intake is fair. According to son, the patient does have a hard time getting out of bed. He is still weak. Oral intake is fair. The patient will be benefited from short-term rehab. OBJECTIVE: Vital Signs: Noted. Neck: Supple. No JVD. Lungs: Bibasilar crepitations. Heart: A 2/6 systolic murmur at the apex. Abdomen: Soft, nontender. Bowel sounds present. DIRECTOR ALLIANCE MARKETING: Alert, awake, able to move all 4 limbs. CONSIDERATION: 1. Hypertension, improved. I increased his Procardia to 60 mg yesterday. 2. Chronic kidney disease stage 5. The patient is getting dialysis. 3. Left lower lobe pneumonia, on intravenous antibiotics. 4. Gastritis and reflux disease. 5. Hypothyroidism. LABORATORY DATA: Lab done yesterday noted. PLAN: Plan is to continue current treatment, close observation. Discharge the patient to rehab. cc: Virgil Brooke MD
[2019-08-04] MEDS: MIRALAX PO SCH (08:05)
[2019-08-04] MEDS: ZOSYN 2.25 GM in NS 50 ML IV SCH (08:05)
[2019-08-04] MEDS: PROTONIX IV SCH (08:05)
[2019-08-04] MEDS: RENAGEL PO SCH ×2 (08:06→13:32)
[2019-08-04] MEDS: FERROUS SULFATE PO SCH (08:07)
[2019-08-04] MEDS: APRESOLINE PO SCH ×2 (08:07→13:31)
[2019-08-04] MEDS: SYNTHROID PO SCH (08:07)
[2019-08-04] MEDS: PROCARDIA ER PO SCH (08:07)
[2019-08-04] MEDS: LASIX PO SCH (08:07)
[2019-08-04] MEDS: CENTRUM SILVER PO SCH (08:08)
[2019-08-04] MEDS: COLACE PO SCH (08:08)
[2019-08-04] MEDS: LOPRESSOR PO SCH (08:08)
[2019-08-04] MEDS: HUMALOG SUBQ SCH ×2 (08:36→13:30)
[2019-08-04] MEDS ORDERED: SODIUM CHLORIDE 0.9% IV SCH (09:00)
[2019-08-04] MEDS: LOVENOX SUBQ SCH (10:10)
[2019-08-04 12:03] VITALS: BP 112/41
--- NOTE | 2019-08-04 12:08 | DISCHARGE SUMMARY ---
ADMISSION DATE: 07/29/2019 DISCHARGE DATE: FINAL DISCHARGE DIAGNOSES: 1. Left lower lobe pneumonia. 2. Chronic kidney disease stage 5. 3. Uncontrolled hypertension. 4. Insulin-dependent diabetes mellitus. 5. Hyperlipidemia. 6. Gastritis and reflux disease. 7. Hypothyroidism. 8. Cholelithiasis. 9. Nephrolithiasis. 10. Severe atherosclerosis. 11. Bilateral renal nodules. 12. Constipation. 13. Anemia. 14. Insomnia. HISTORY AND HOSPITAL COURSE: Mr. Ross is an 88-year-old, white gentleman with multiple medical problems, admitted with nausea, vomiting, fever, and chills. The patient claims that he could not control his chills. The patient was living at assisted living place. Flag Signalman at assisted living called EMS. The patient was brought to the emergency room. CT scan in the emergency room did reveal left lower lobe pneumonia. The patient was evaluated and admitted for further care. 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 The patient was started on IV antibiotics, pulmonary toilet. His clinical condition gradually improved. The patient's chest congestion and cough was getting better. His oral intake was improving. The patient had emergent hypertension. I increased his Procardia to 60 mg. The patient received hemodialysis as recommended by advertising production manager, who followed the patient with us in the hospital. The patient was weak, requiring physical therapy and strengthening exercises. Overall, the patient was doing better, remained afebrile, blood pressure improved. The patient lives by himself. He will benefit from inpatient rehab. We did Social Service consult, and the patient is going to short- term rehab. Overall, discharge condition is satisfactory. Discussed fall precaution, suprapubic catheter care. The patient will be followed up by Practice Support Specialist. The patient will need dialysis as recommended by Dr. Cruz 3 times a week, an 1800-calorie ADA diet. Medication as per separate sheet. Overall discharge condition is satisfactory. IMAGING AND LABORATORY DATA: Lab data done yesterday shows hemoglobin 10.6, hematocrit 35.8, WBC count 4.99, platelet count 239,000. His potassium yesterday was 3.3, sodium 139, creatinine 2.9, BUN 17. The patient had hepatitis panel done, and it was negative. CT scan of the abdomen and pelvis revealed lower lobe pneumonia, cholelithiasis, nephrolithiasis, bilateral renal nodules, severe atherosclerosis, constipation. Overall discharge plan discussed at length with the patient and his son, and they are in agreement. DISCHARGE MEDICATIONS: As per separate sheet. cc: Virgil Brooke MD
--- NOTE | 2019-08-04 14:58 | PROVIDER PROGRESS NOTE ---
Progress Note Subjective: He voices feeling well and his been up ambulating in his room this morning. He denies any uremic complaints. Objective: temperature 97.4, pulse 75, respiration 16, blood pressure 150/64, 02 sat 99% on room air. General:frail, elderly, white male standing up in no acute distress. HEENT: normocephalic, atraumatic, pupils equal and reactive. Mucous membranes moist. Skin: warm and dry Neck: supple, no JVD observed. Cardiovascular: paced. S1, S2, regular rate and rhythm. Respiratory: clear anteriorly with equal air entry. Abdomen: soft, nontender, nondistended. Bowel sounds active. : non-inspected, Suprapubic catheter in place Extremities: no clubbing, cyanosis, or edema. Neurological: alert, oriented to person, place, and time Labs: Intake 826, output 200. Impression: Chronic kidney disease stage 5D. He received his routine hemodialysis yesterday without complications. He is awaiting SNF placement. Blood pressure. Stable. Nifedipine started yesterday. Fluid volume. Euvolemic. Anemia. Stable on last labs. Electrolytes. Stable on last labs. Acid base balance. Stable on last labs. Ambulation. PT in place. Medication review. No changes.
== END 2019-08-04 15:55 | DRG 193 ==
LOC: SUPCPDRO → ED 21:12 → EDIPHOLD 07-29 06:23 → 1N 07-29 15:14
PROVIDERS: ADMIT Internal Medicine; ATTEND Internal Medicine